=== PATIENT | female | born 1950 | race Caucasian/White ===

== ENCOUNTER 2023-11-01 08:14 | Day surgery (SDC) | payer MEDICARE, SELFPAY ==
[2023-10-05 10:12] VITALS: BMI 34.8
[2023-10-21 11:49] VITALS: BMI 34.4
--- NOTE | 2023-10-25 10:58 | PM.HPGS ---
History of Present Illness History of Present Illness Consent: Risks, benefits, and alternatives have been discussed and questions answered. Patient agrees to proceed with procedure. Chief complaint: Dysphagia, Diaphragmatic Hernia wo Obstruction or Narrative: Hayde Greer is a 72 year old female who has been experiencing similar symptoms that she had prior to her last EGD with dilation in 2019. She admits to epigastric discomfort and dysphagia with solid foods but denies any difficulty swallowing pills or liquids. her symptoms have been occurring intermittently over the past year. her last EGD was 5 years ago. Review of Systems Review of Systems: All systems reviewed & are unremarkable except as noted in HPI and below PMFSH Past Medical History Medical History Anterolisthesis of lumbar spine CVA (cerebral vascular accident) Depression Hypertension Leg pain Malignant neoplasm of endometrium Mixed hyperlipidemia Ocular migraine Osteoarthritis, hip, bilateral Restless leg syndrome Thoracic back pain Type 2 diabetes mellitus Vitamin D deficiency Surgical History Surgical History H/O breast biopsy H/O: hysterectomy Family History Family History Mother Pancreatic cancer Father Hyperlipidemia Sibling Breast cancer Sibling Muscular dystrophy Daughter Thyroid disease Social History Social History Smoking status: Never smoker Alcohol intake: never Substance use: never Substance use type: does not use Living arrangements: with family Spiritual care concerns: No Meds Home Medications and Allergies Home Medications Medication Instructions Recorded Confirmed Type aspirin 325 mg tablet,delayed 325 mg PO DAILY 09/19/23 11/01/23 History release clopidogrel 75 mg tablet 75 mg PO DAILY 09/19/23 11/01/23 History cyanocobalamin (vitamin B-12) 5,000 mcg PO DAILY 09/19/23 11/01/23 History 5,000 mcg capsule losartan 25 mg tablet 25 mg PO DAILY 09/19/23 11/01/23 History metformin 500 mg tablet 500 mg PO QID 09/19/23 11/01/23 History multivitamin 1 tablet PO DAILY 09/19/23 11/01/23 History omega 3-dha 200 mg-epa 300 mg-fish 1 cap PO DAILY 09/19/23 11/01/23 History oil 1,000 mg capsule sertraline 25 mg tablet 25 mg PO DAILY 09/19/23 11/01/23 History simvastatin 40 mg tablet 40 mg PO DAILY 09/19/23 11/01/23 History cholecalciferol (vitamin D3) 250 250 mcg PO DAILY 10/21/23 11/01/23 History mcg (10,000 unit) tablet vitamin B complex 1 cap PO DAILY 10/21/23 11/01/23 History Allergies Allergy/AdvReac Type Severity Reaction Status Date / Time Sulfa (Sulfonamide Allergy Mild Rash Verified 11/01/23 08:38 Antibiotics) Exam Const: General: alert Orientation/consciousness: patient oriented x3 Resp: Auscultation: clear to auscultation bilaterally Cardio: Rhythm: regular rhythm GI: GI Palp: Yes Soft to palpation and No Tenderness to palpation present (GI) Neuro: General: patient oriented x3 Assessment and Plan Assessment and plan (1) Dysphagia: Code(s): R13.10 - Dysphagia, unspecified Status: Acute Assessment and Plan: EGD with possible biopsy or dilatation or cautery.
--- NOTE | 2023-10-26 10:27 | SUR.PREOP ---
Spoke with pt 10/26/23 re clopidogrel clearance. Informed pt received clearance from Dr. Sauer to hold for 4 days prior to procedure, but to continue ASA. Pt verbalized understanding of clodpidogrel last dose of 10/27/23.
[2023-11-01 08:45] VITALS: BP 129/102; PULSE 70; RESP 18; TEMP 36; O2SAT 100; BMI 34.4
--- NOTE | 2023-11-01 09:01 | WPDANESEPPF ---
Anes - Initial Pre Proc Eval Procedure: Operation Date: 11/01/23 09:30 Proposed Procedures p Esophagogastroduodenoscopy - Georges Tomlin MD Date/Time: 11/01/23 09:01 Surgeon: Georges Tomlin MD Pre Op Diagnosis: Dysphagia, Diaphragmatic Hernia wo Obstruction or Patient Data Age: 72 Gender: F Height: 1.63 m Weight: 91.2 kg Last Vital Signs Temp 36.0 C L 11/01/23 08:45 Pulse 70 11/01/23 08:45 Resp 18 11/01/23 08:45 BP 129/102 H 11/01/23 08:45 Pulse Ox 100 11/01/23 08:45 O2 Del Method Room Air 11/01/23 08:45 Allergies Allergy/AdvReac Type Severity Reaction Status Date / Time Sulfa (Sulfonamide Allergy Mild Rash Verified 11/01/23 08:38 Antibiotics) Home Medications Medication Instructions Recorded Confirmed Type aspirin 325 mg tablet,delayed 325 mg PO DAILY 09/19/23 11/01/23 History release clopidogrel 75 mg tablet 75 mg PO DAILY 09/19/23 11/01/23 History cyanocobalamin (vitamin B-12) 5,000 mcg PO DAILY 09/19/23 11/01/23 History 5,000 mcg capsule losartan 25 mg tablet 25 mg PO DAILY 09/19/23 11/01/23 History metformin 500 mg tablet 500 mg PO QID 09/19/23 11/01/23 History multivitamin 1 tablet PO DAILY 09/19/23 11/01/23 History omega 3-dha 200 mg-epa 300 mg-fish 1 cap PO DAILY 09/19/23 11/01/23 History oil 1,000 mg capsule sertraline 25 mg tablet 25 mg PO DAILY 09/19/23 11/01/23 History simvastatin 40 mg tablet 40 mg PO DAILY 09/19/23 11/01/23 History cholecalciferol (vitamin D3) 250 250 mcg PO DAILY 10/21/23 11/01/23 History mcg (10,000 unit) tablet vitamin B complex 1 cap PO DAILY 10/21/23 11/01/23 History Patient hx anesthesia problems: none Family hx anesthesia problems: none Results Review: All pre-operative results and documents have been reviewed as part of the pre-operative evaluation. [facility] Past Medical History Medical History Anterolisthesis of lumbar spine CVA (cerebral vascular accident) Depression Hypertension Leg pain Malignant neoplasm of endometrium Mixed hyperlipidemia Ocular migraine Osteoarthritis, hip, bilateral Restless leg syndrome Thoracic back pain Type 2 diabetes mellitus Vitamin D deficiency Surgical History Surgical History H/O breast biopsy H/O: hysterectomy Family History Family History Mother Pancreatic cancer Father Hyperlipidemia Sibling Breast cancer Sibling Muscular dystrophy Daughter Thyroid disease Social History Social History Smoking status: Never smoker Alcohol intake: never Substance use: never Substance use type: does not use Living arrangements: with family Spiritual care concerns: No Anes - Eval Final PreProcedure Day of Procedure 11/01/23 09:01 Patient weight: obese Heart: regular rate and rhythm Lungs: clear to auscultation Airway: Mallampati scale class II Neurological: alert and oriented Last oral intake: >/= 8 hours ASA classification: III Emergent: no Anesthetic plan: proceed Anesthesia type and monitoring: general GIVS and standard monitoring Results Review: All pre-operative results and documents have been reviewed as part of the pre-operative evaluation. Informed Consent: The patient's anesthetic plan and its attendant risks and benefits were discussed with the patient/family/POA. Questions were solicited and answers provided to the satisfaction of the patient/family/POA.
[2023-11-01] MEDS: LACTATED RINGERS 1,000 ML 150 ML IV CONT (09:04)
[2023-11-01 09:08] LABS: Glucose Point of Care 157 mg/dl (65-105)
[2023-11-01 09:41] VITALS: BP 115/63; PULSE 68; RESP 15; O2SAT 98
[2023-11-01 09:51] VITALS: BP 109/68; PULSE 71; RESP 16; O2SAT 100
[2023-11-01 10:01] VITALS: BP 122/84; PULSE 88; RESP 16; O2SAT 100
--- NOTE | 2023-11-01 10:08 | WPDANESPN ---
Anes - Prog Note Post-Op Date/Time: 11/01/23 10:08 Cardiovascular status: normal Respiratory status: normal Airway patency: baseline Mental status: baseline Post-Op hydration status: normal Vital Signs: Last Vital Signs Temp 36.0 C L 11/01/23 08:45 Pulse 88 11/01/23 10:01 Resp 16 11/01/23 10:01 BP 122/84 11/01/23 10:01 Pulse Ox 100 11/01/23 10:01 O2 Del Method Room Air 11/01/23 10:01 Pain Score (VAS): 0/10 I/O: Intake & Output 10/31/23 11/01/23 11/01/23 23:59 07:59 15:59 Intake Total 200 Balance 200 11/01/23 09:02 POC Capillary Glucose 157 H Patient Feedback: Patient satisfied with anesthetic care.
--- NOTE | 2023-11-01 10:56 | SUR.PHASEII ---
Pt notified at 1010 pt was finished and would be ready to be picked up at 1030. Contacted pt's at 1035 and he stated he was still 25 minutes away.
== END 2023-11-01 10:55 | disposition home or self-care (01) ==
PROVIDERS: PCP Family Medicine; Visit Provider Internal Medicine Gastroenterology
PROC: 0DJ08ZZ Inspection of Upper Intestinal Tract, Via Natural or Artificial Opening Endoscopic (ICD-10-PCS; CPT 43235; principal; 2023-11-01 09:30)
DX: K22.2 Esophageal obstruction (principal); R13.19 Other dysphagia; K31.89 Other diseases of stomach and duodenum; K44.9 Diaphragmatic hernia without obstruction or gangrene
CPT/HCPCS: 43249; 43239

== ENCOUNTER 2023-11-01 11:45 | Outpatient (NON) | payer MEDICARE, SELFPAY | END 2023-11-01 11:46 | disposition home or self-care (01) | LOC: ANHLAB 11-02 11:47 | PROVIDERS: PCP Family Medicine; Visit Provider Internal Medicine Gastroenterology | DX: R10.13 Epigastric pain (principal) | CPT/HCPCS: 88305 ==

== ENCOUNTER 2025-01-16 01:07 | Day surgery (SDC) | payer MEDICARE, SELFPAY ==
[2025-01-02 10:50] VITALS: BMI 36.6
--- NOTE | 2025-01-04 14:27 | PC.NURSE ---
Spoke with patient regarding medication Plavix. Patient verbalizes understanding that the last dose is to be taken on 01/08/25 and the Endoscopist will instruct them when to restart after the procedure.
--- OUTSIDE RECORDS SUMMARY | 2025-01-16 01:10 | XMS_ITS ---
Author Organization [facility] Address [address] [place] [address] Care Team Providers Care Art Education Professor Name Role Phone Nannette Fletcher MD Unavailable [phone] Samantha Dueñas NP Unavailable [phone] Maryjo Mcclelland MD Unavailable [phone] Aman Wolf MD Unavailable [phone] Cody Gao MD Unavailable [phone] Ivan Cho MD Unavailable [phone] Celestina Daly UNEMPLOYMENT INSURANCE HEARING OFFICER Primary Care Provider [phone] Wale Rucker MD Unavailable [phone] Ben Garcia DO Unavailable [phone] Lona Escalera MD Unavailable Active Problems Problem Noted Date Diagnosed Date Severe obesity 12/11/2024 Vision changes 08/27/2024 Class 1 obesity due to exces s calories with serious comorbidity and body mass index (BMI) of 34.0 to 34.9 in adult 08/01/2023 Assessment & Plan (03/26/2024 10:09 AM WOOD PATTERNMAKER): Not at goal No weight loss noted with starting of Trulicity Increase dose to 1.5mg weekly d/t hyperglycemia and may see weight loss as well. Assessment & Plan (02/09/2024 12:05 PM CDT): Not at goal Wt Readings from Last 3 Encounters: 02/09/24 90.5 kg (199 lb 8 oz) 01/12/24 91.3 kg (201 lb 4.8 oz) 01/12/24 91.2 kg (201 lb) Continue working on low carb diet Consider referral to [facility] program Assessment & Plan (10/31/2023 10:48 AM CDT): Pt would benefit from improved diet and exercise habits. Assessment & Plan (08/01/2023 4:05 PM CDT): BMI Follow-up includes: nutrition counseling and exercise counseling. Generalized anxiety disorder 06/07/2023 Chronic low back pain 06/07/2023 Assessment & Plan (08/08/2024 11:46 AM CDT): Chronic pain Experiences chronic pain, currently prescribed gabapentin. Prefers a lower dose to remain alert. Concerns about side effects and communication with current pain management provider. - Continue current gabapentin regimen as needed. - Consider discussing pain management options with current provider. Diabetic peripheral neuropathy 06/07/2023 Encounter for Medicare annual wellness exam 03/24 Assessment & Plan (08/08/2024 11:46 AM CDT): Discussed with patient current recommendations for annual screening(s) including pap smear every 3 years starting at age 21 until age 65. Patients no longer need paps after age 65. Recommend annual mammograms starting at age 40 to 74yo. Recommend colon cancer screening with colonoscopy or DNA stool testing such as Cologuard starting at age 45. Bone density for postmenopausal status every 2 years. Discussed diet, exercise, and importance of maintaining a healthy weight. For smokers or previous smokers that have quit in the past 15 years, annual lung cancer screening is recommended via a low dose CT scan. This is recommended from 50-80yo. General Health Maintenance Managing multiple chronic conditions. Advised to maintain regular health screenings and lifestyle modifications. - Order A1c and urine sample before next appointment. - Encourage outdoor activities as spring approaches. Assessment & Plan (04/13/2022 5:03 PM WOOD PATTERNMAKER): Chart reviewed Full code status 03/10/2021 Assessment & Plan (03/10/2021 12:17 PM CDT): Discussed with patient approximately 20minutes End of life issues/Advanced Directives/Healthcare Surrogate. Discussed DNR. Encouraged to discuss further with family and consult assistant district attorney or complete [place] approved form, which I would be glad to assist them with completion. All questions answered. polst form filled out and signed Thoracic back pain 12/20/2018 Assessment & Plan (01/17/2019 1:47 PM CDT): Ct chest EKG no acute issues lab Assessment & Plan (12/20/2018 12:36 PM CDT): xr t spine Mixed hyperlipidemia 09/13/2018 Assessment & Plan (10/31/2023 10:44 AM CDT): Controlled Repeat labs due Continue simvastatin 40mg daily, ASA 325mg Assessment & Plan (08/01/2023 3:57 PM CDT): Continue simvastatin at same dosage. Well controlled. Assessment & Plan (02/16/2023 12:33 PM CDT): Patient is well controlled. Continue current treatment. Assessment & Plan (01/11/2022 1:00 PM CDT): Update lipid panel ordered last visit. Continue current medications. Assessment & Plan (07/08/2021 3:16 PM WOOD PATTERNMAKER): Recheck labs in 4-6 months. Continue simvastatin Assessment & Plan (12/20/2018 12:31 PM CDT): Patient is well controlled. Continue current treatment. Hypertension 09/13/2018 Assessment & Plan (06/01/2024 9:53 AM WOOD PATTERNMAKER): At goal BP Readings from Last 1 Encounters: 06/01/24 132/68 BP Goal: <64yo: <130/90, 65>: 140/90 Continue losartan 25mg daily Assessment & Plan (10/31/2023 10:47 AM CDT): Stable BP at goal Continue losartan 25mg Assessment & Plan (08/01/2023 3:58 PM CDT): Continue losartan at same dosage. Well controlled. Assessment & Plan (11/11/2022 12:18 PM CDT): Patient is well controlled. Continue current treatment. Assessment & Plan (01/11/2022 1:00 PM CDT): Well controlled. Continue current regimen. Assessment & Plan (07/08/2021 3:16 PM WOOD PATTERNMAKER): Stable. No changes. Assessment & Plan (11/06/2020 12:12 PM CDT): Patient is well controlled. Continue current treatment. Losartan Assessment & Plan (05/08/2020 1:15 PM WOOD PATTERNMAKER): Patient is well controlled. Continue current treatment. Assessment & Plan (10/31/2019 1:31 PM CDT): Patient is well controlled. Continue current treatment. Assessment & Plan (12/20/2018 12:31 PM CDT): Patient is well controlled. Continue current treatment. Assessment & Plan (09/21/2018 9:23 AM CDT): Patient is well controlled. Continue current treatment. Assessment & Plan (09/13/2018 2:09 PM CDT): Patient is well controlled. Continue current treatment. Depression, major, recurrent 09/13/2018 Assessment & Plan (10/31/2023 10:48 AM CDT): Stable Continue Zoloft 25mg daily Assessment & Plan (08/03/2023 8:26 AM CDT): Could be better. Recommend increase Zoloft to 100 mg. Increase dosage declined Assessment & Plan (02/16/2023 12:34 PM CDT): stable Assessment & Plan (11/11/2022 12:18 PM CDT): Patient is well controlled. Continue current treatment. Assessment & Plan (08/11/2022 2:09 PM CDT): Patient is well controlled. Continue current treatment. Cont sertraline Assessment & Plan (10/31/2019 1:32 PM CDT): Stable on sertraline 25 mg Assessment & Plan (12/20/2018 12:30 PM CDT): Doing much better Patient is well controlled. Continue current treatment. Assessment & Plan (09/13/2018 2:11 PM CDT): Start sertraline 25 mg No plan Restless leg syndrome 07/27/2018 Assessment & Plan (03/26/2024 10:09 AM WOOD PATTERNMAKER): Improved Continue gabapentin 100mg HS Assessment & Plan (02/09/2024 12:06 PM CDT): Not at goal d/t S/e with gabapentin Advise to decrease to 100mg HS and then can stop if desired Assessment & Plan (05/08/2020 1:16 PM WOOD PATTERNMAKER): Stable Not on med Assessment & Plan (10/31/2019 1:32 PM CDT): Patient is well controlled. Continue current treatment. 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 Wolf and I discussed test results with the patient and her . She is encouraged to take the aspirin 325 mg daily for stroke prevention. She is encouraged to follow up with her primary care doctor regarding her diabetic control. She should also follow up on a regular basis for blood pressure and cholesterol checking. If she has any further problems she should contact the office or go to the emergency room for evaluation. Ocular migraine 12/07/2016 Assessment & Plan (12/07/2016 2:23 PM CDT): Headaches are unchanged. Advised to keep a headache diary. Counseled regarding lifestyle modifications. Call if having increased problems or any other changes in neurological status. Cerebrovascular accident (CVA) 10/12/2016 Assessment & Plan (02/16/2023 12:34 PM CDT): Patient is well controlled. Continue current treatment. Assessment & Plan (10/31/2019 1:31 PM CDT): Had a fu with neurology Doing ok Assessment & Plan (12/20/2018 12:31 PM CDT): Overall doing well Assessment & Plan (09/13/2018 2:10 PM CDT): Continues on anticoagulation Type 2 diabetes mellitus wit h hyperglycemia, with long-term current use of insulin 04/13/2016 Assessment & Plan (08/08/2024 11:46 AM CDT): Type 2 diabetes mellitus with hyperglycemia Blood glucose levels fluctuate, mostly in the 100s, occasionally reaching 199. No hypoglycemia reported. Current insulin regimen includes Tresiba at 8 units. She prefers managing higher glucose levels over hypoglycemia risk. - Continue Tresiba at 8 units. - Monitor blood glucose levels, report if levels exceed 200. - Consider adjusting insulin dosage based on glucose readings. - Assist in obtaining medication discounts. Increase Tresiba to 10 units for 3-4 days after steroid injections Foot pain Heel pain likely due to callus formation and shoe pressure. No signs of wounds or diabetic foot complications. - Advise on proper footwear to reduce heel pressure. - Monitor for foot wounds. Assessment & Plan (06/01/2024 9:51 AM WOOD PATTERNMAKER): Not at goal but improving! Lab Results Component Value Date HGBA1C 7.7 06/01/2024 New order for Trulicity to pharmacy. Advised will need PA. Continue Tresiba 6 units HS until resuming Trulicity if able. If able to resume Trulicity, decrease to 4 units for first week then stop Tresiba insulin. Continue daily glucose monitoring No hypo episodes Repeat labs prior to next appt Assessment & Plan (03/26/2024 10:08 AM WOOD PATTERNMAKER): Not at goal Fasting glucose in 150s Lab Results Component Value Date HGBA1C 8.3 (H) 02/08/2024 Increase Trulicity to 1.5mg weekly Side effects with Jardiance and metformin XR 1500mg Continue daily glucose checks Discussed adding metformin for PRN coverage around steroid injections or adding PRN SSI around injections when needed Repeat labs prior to next appt Assessment & Plan (02/09/2024 12:05 PM CDT): Not at goal Lab Results Component Value Date HGBA1C 8.3 (H) 02/08/2024 Stop Jardiance d/t frequent UTI and yeast infections Continue metformin 1500mg daily Add Trulicity 0.75mg weekly. Discussed possible s/e. Continue daily glucose checks Advised if unable to tolerate GLP1 will be looking at insulin injections d/t sulfa allergy as well Assessment & Plan (10/31/2023 10:47 AM CDT): Not controlled A1c 7.4 Due for repeat Continue metformin 500mg BID Checks glucose daily Gets yearly diabetic eye exam, no peripheral neuropathy Assessment & Plan (10/31/2023 10:46 AM CDT): >>ASSESSMENT AND PLAN FOR TYPE 2 DIABETES MELLITUS WITH DIABETIC POLYNEUROPATHY, WITHOUT LONG-TERM CURRENT USE OF INSULIN (CMS/HCC) ([facility]) WRITTEN ON 09/13/2018 2:09 PM BY WALE FAIRCHILD DO Patient is well controlled. Continue current treatment. a1c 6.7 Assessment & Plan (10/31/2023 10:46 AM CDT): >>ASSESSMENT AND PLAN FOR TYPE 2 DIABETES MELLITUS WITH DIABETIC POLYNEUROPATHY, WITHOUT LONG-TERM CURRENT USE OF INSULIN (CMS/HCC) ([facility]) WRITTEN ON 09/21/2018 9:23 AM BY WALE FAIRCHILD DO Patient is well controlled. Continue current treatment. Assessment & Plan (10/31/2023 10:46 AM CDT): >>ASSESSMENT AND PLAN FOR TYPE 2 DIABETES MELLITUS WITH DIABETIC POLYNEUROPATHY, WITHOUT LONG-TERM CURRENT USE OF INSULIN (CMS/HCC) ([facility]) WRITTEN ON 12/20/2018 12:31 PM BY WALE FAIRCHILD DO Patient is well controlled. Continue current treatment. Check a a1c Assessment & Plan (10/31/2023 10:46 AM CDT): >>ASSESSMENT AND PLAN FOR TYPE 2 DIABETES MELLITUS WITH DIABETIC POLYNEUROPATHY, WITHOUT LONG-TERM CURRENT USE OF INSULIN (CMS/HCC) ([facility]) WRITTEN ON 10/31/2019 1:31 PM BY WALE FAIRCHILD DO a1c Assessment & Plan (10/31/2023 10:46 AM CDT): >>ASSESSMENT AND PLAN FOR TYPE 2 DIABETES MELLITUS WITH DIABETIC POLYNEUROPATHY, WITHOUT LONG-TERM CURRENT USE OF INSULIN (CMS/HCC) ([facility]) WRITTEN ON 05/08/2020 1:16 PM BY WALE FAIRCHILD DO Lab in 6 months Assessment & Plan (10/31/2023 10:46 AM CDT): >>ASSESSMENT AND PLAN FOR TYPE 2 DIABETES MELLITUS WITH DIABETIC POLYNEUROPATHY, WITHOUT LONG-TERM CURRENT USE OF INSULIN (CMS/HCC) ([facility]) WRITTEN ON 11/06/2020 12:11 PM BY WALE FAIRCHILD, DO a1c to 7.5 Recheck sma 7 and a1c in 3 months Assessment & Plan (10/31/2023 10:46 AM CDT): >>ASSESSMENT AND PLAN FOR TYPE 2 DIABETES MELLITUS WITH DIABETIC POLYNEUROPATHY, WITHOUT LONG-TERM CURRENT USE OF INSULIN (CMS/HCC) ([facility]) WRITTEN ON 03/10/2021 12:20 PM BY WALE FAIRCHILD, DO Check a z1c sma 7 Hep c screen Assessment & Plan (10/31/2023 10:46 AM CDT): >>ASSESSMENT AND PLAN FOR TYPE 2 DIABETES MELLITUS WITH DIABETIC POLYNEUROPATHY, WITHOUT LONG-TERM CURRENT USE OF INSULIN (CMS/HCC) ([facility]) WRITTEN ON 07/08/2021 3:15 PM BY MOHINDER MCRAE PA Hemoglobin A1C stable at 7.5. Continue metformin and she will try to watch diet more closely. Recheck A1C, CMP, and uACR in 4-6 months. Assessment & Plan (10/31/2023 10:46 AM CDT): >>ASSESSMENT AND PLAN FOR TYPE 2 DIABETES MELLITUS WITH DIABETIC POLYNEUROPATHY, WITHOUT LONG-TERM CURRENT USE OF INSULIN (CMS/HCC) ([facility]) WRITTEN ON 01/11/2022 1:00 PM BY MOHINDER MCRAE PA A1C 7.5 (goal < 7.5). Sugars well controlled at home. Update labs - ordered last visit, she will go today. DM eye exam is current. Assessment & Plan (10/31/2023 10:46 AM CDT): >>ASSESSMENT AND PLAN FOR TYPE 2 DIABETES MELLITUS WITH DIABETIC POLYNEUROPATHY, WITHOUT LONG-TERM CURRENT USE OF INSULIN (CMS/HCC) ([facility]) WRITTEN ON 04/13/2022 5:03 PM BY WALE FAIRCHILD, DO No new orders Assessment & Plan (10/31/2023 10:46 AM CDT): >>ASSESSMENT AND PLAN FOR TYPE 2 DIABETES MELLITUS WITH DIABETIC POLYNEUROPATHY, WITHOUT LONG-TERM CURRENT USE OF INSULIN ([facility]) ([facility]) WRITTEN ON 08/11/2022 2:10 PM BY WALE FAIRCHILD DO Patient is well controlled. Continue current treatment. a1c 7.4 Assessment & Plan (10/31/2023 10:46 AM CDT): >>ASSESSMENT AND PLAN FOR TYPE 2 DIABETES MELLITUS WITH DIABETIC POLYNEUROPATHY, WITHOUT LONG-TERM CURRENT USE OF INSULIN ([facility]) ([facility]) WRITTEN ON 02/16/2023 12:34 PM BY WALE FAIRCHILD DO sc Assessment & Plan (08/01/2023 3:55 PM CDT): Worsening diabetes with higher A1c. Continue metformin 500 mg b.i.d.. Recommend add glipizide 5 mg daily. Additional medicine declined. Current Treatment and Therapy Plans No current plan information found. Past Treatment and Therapy Plans No past plan information found. Lifetime Dose Tracking * Chemical Lifetime Dose Automatic Entry Manual Entr y Fluoro Time 1.1 minutes 1.1 minutes 0 minutes Air kerma at the reference point (Ka,r) 18.33 mGy 1 8.33 mGy 0 mGy Resolved Problems Problem Noted Date Diagnosed Date Resolved Date Moderate recurrent major depression 02/09/2024 12/11/2024 Assessment & Plan (08/08/2024 11:45 AM CDT): Depression Recent mood disturbances related to family stressors. Currently on sertraline 25 mg. Discussed that antidepressants are not addictive but can have withdrawal symptoms if stopped abruptly. Increasing the dose to 50 mg is an option. - Increase sertraline to 50 mg. - Send prescription for increased dose to pharmacy. - Monitor for adverse effects from dosage increase. - Educate on non-addictive nature of antidepressants and potential withdrawal symptoms. Assessment & Plan (02/09/2024 12:06 PM CDT): Stable Continue Zoloft 25mg daily Weight loss 11/11/2022 10/31/2023 Assessment & Plan (11/11/2022 12:19 PM CDT): She is closely watching diet Severe obesity (BMI 35.0-39. 9) with comorbidity 04/13/2022 11/11/2022 Assessment & Plan (08/11/2022 2:08 PM CDT): She is intermittent fasting has lost 10 lb since beginning of June Assessment & Plan (04/13/2022 5:03 PM WOOD PATTERNMAKER): Healthy diet Fall 10/17/2020 10/31/2023 Assessment & Plan (10/17/2020 11:40 AM CDT): X ray chest and ribs Leg pain 10/06/2020 10/31/2023 Assessment & Plan (10/06/2020 2:02 PM CDT): LEFT LOWER LATERAL EXTREMITY. No masses. No erythema. No ecchymosis. No masses palpated. Calf is nontender. I will start with a x-ray of the left tib fib. She may need an MRI we will wait results and go from there Chest pain 01/17/2019 05/08/2020 Assessment & Plan (01/17/2019 1:48 PM CDT): Lab Ct chest ekg no acute issues D dimer UTI (urinary tract infection) 09/21/2018 12/20/2018 Overview (09/21/2018): Add cipro Malignant neoplasm of endometrium 07/19/2017 02/09/2024 Episodic tension-type headac he, not intractable 12/07/2016 05/08/2020 Assessment & Plan (12/07/2016 2:24 PM CDT): Headaches are improving with lifestyle modifications. Advised to keep a headache diary. Counseled regarding lifestyle modifications. Headaches are improving. She should call if needs additional treatment. Peripheral polyneuropathy 11/30/2016 Assessment & Plan (05/08/2020 1:15 PM WOOD PATTERNMAKER): Patient is well controlled. Continue current treatment.
--- OUTSIDE RECORDS SUMMARY | 2025-01-16 01:10 | XMS_ITS | Encounter Summary ---
Author Organization [facility] Address [address] [place] [address] Care Team Providers Care Bilingual Operator Name Role Phone Laura Schaefer MD Unavailable [phone] Chase Rice DO Primary Care Provider + Encounter Details Date Type Department Care Team (Late st Contact Info) Description 03/20/2020 Lab Requisition [facility] Lab [address] [place] [id number] Doug Gao MD [address] [place] [id number] Social History Tobacco Use Types Packs/Day Years Used Date Smoking Tobacco: Never Alcohol Use Standard Drinks/Week Comments Not Asked 0 (1 standard drink = 0.6 oz pur e alcohol) Comments No Sex and Gender Information Value Date Recorded Sex Assigned at Not on file Legal Sex Female 1:54 PM CDT Gender Identity Not on file Sexual Orientation Not on file documented as of this encounter Plan of Treatment Not on file documented as of this encounter Procedures Procedure Name Priority Date/Time Associated Diagnosis Comments DERMATOPATHOLOGY Routine 03/19/2020 12:0 0 AM CDT documented in this encounter Results * DERMATOPATHOLOGY (03/19/2020 12:00 AM CDT) Case Report Dermatopathology Report Case: [id number] Authorizing Provider: Doug Gao MD Collected: 03/19/2020 12:00 AM Ordering Location: [facility] Received: 03/20/2020 06:05 AM Pathologist: Inessa Blake MD Specimen: Skin, left forehead 0 10:01 AM [facility]ERMAT[facility]ATHOLOGY [facility]ORAT[facility] Amended Report Change Pathologic Diagnosis from residual basal cell carcinoma not identified to residual squamous cell carcinoma not identified. Microscopic description changed from no basal cell carcinoma is identified to no squamous cell carcinoma is identified. 0 10:01 AM [facility] DERMATOPATHOLOGY [facility]ORATORY Final Diagnosis Specimen A. SKIN, left forehead: DERMAL SCAR RESIDUAL SQUAMOUS CELL CARCINOMA NOT IDENTIFIED (L90.5) 0 10:01 AM [facility] DERMATOPATHOLOGY LABORATORY Amendment electronically signed by Inessa Blake MD on 04/04/2020 at 1001 PASTRY ASSISTANT at 1415 CDT Clinical History Bx proven SCCA. Path # [id number]. 0 10:01 AM [facility] DERMATOPATHOLOGY LABORATORY Gross Description Specimen A: Received is one formalin filled container labeled with the patient's name and designated left forehead. The specimen consists of a non-oriented ellipse of skin measuring [id number]. The epidermal surface is unremarkable. The margin is inked green. The 12 o'clock and 6 o'clock tips are submitted in cassette 1. The remainder of the ellipse is serially sectioned and submitted in cassette 2. Jar 0. 0 10:01 AM [facility] DERMATOPATHOLOGY [facility]ORATORY Microscopic Description Specimen A. SKIN, left forehead: There are fibroblasts and collagen bundles oriented parallel to the skin surface. There are elongated blood vessels, some of which are oriented perpendicular to the skin surface. No squamous cell carcinoma is identified. 0 10:01 AM [facility] DERMATOPATHOLOGY LABORATORY Disclaimer An external and internal positive and negative controls are appropriate for the histochemical, immunohistochemical and immunofluorescence stain(s) in this case (if any), except where stated explicitly. The performance characteristics of the stain(s) cited in this report were developed and its performance characteristic determined by the Dermatopathology Laboratory at [facility], directed by Dr. Gregory Norwood. These tests need not be, and therefore are not, approved by the [place] Food and Drug Administration. The tests are used for clinical purposes. Billing Codes Specimen Charges Stain Charges 43266 1 0 10:01 AM [facility] DERMATOPATHOLOGY LABORATORY Embedded Images 0 10:01 AM [facility] DERMATOPATHOLOGY LABORATORY Pathology/Cytolog y TISSUE SPECIMEN FROM SKIN / Unknown 03/19/2020 03/20/2020 6:05 AM CDT Doug Gao MD LAB - PATHOLOGY/CYTOLOGY ORDER MAY Edited Result - Final DERMATOPATHOLOGY LABORATORY [facility] - Department of Dermatology [facility] Specialized Medicine [address] [place] [address], [address] [place], [place] [id number] [place] [address] documented in this encounter Visit Diagnoses Not on filedocumented in this encounter Care Teams Bilingual Operator Relationship Specialty Start Date End Date Chase Rice DO [address] [place] [id number] PCP - General Family Medicine 08/21/12 Laura Schaefer MD [address] [place] [address] General Surgery 08/21/12 documented as of this encounter
--- OUTSIDE RECORDS SUMMARY | 2025-01-16 01:10 | XMS_ITS | Clinical Summary ---
Author Organization [facility] Address [address] [place] [address] Care Team Providers Care Department Of Natural Resources Officer Name Role Phone Laura Schaefer MD Unavailable [phone] Chase Rice DO Primary Care Provider + Source Comments [facility],non-owned Affiliates and Associated Physician Practices is amultiple site organization consisting of ambulatory clinics and hospital sitesin [place], [place], [place] and [place]. This disclosure is being madepursuant to the Care Everywhere program and may not contain all information available regarding this patient. Last updated 18.[facility] Allergies Active Allergy Reactions Criticality Noted Date Comments Sulfa Drugs Rash Low 08/21/2012 Medications * Be aware that medications may not be up to date on this document. Alwaysverify current medications with the patient. metFORMIN (GLUCOPHAGE) 500 MG tablet once daily. Active simvastatin (ZOCOR) 20 MG tablet once daily. Active amLODIPine (NORVASC) 5 MG tablet once daily. Active Active Problems Problem Noted Date Diagnosed Date Diabetes mellitus Hypertension High cholesterol Family History Medical History Relation Name Comments Cancer - Breast Other cousin Breast Cancer at or under age 50 Sister Relation Name Status Comments Other cousin Alive Sister Alive Social History Tobacco Use Types Packs/Day Years Used Date Smoking Tobacco: Never Alcohol Use Standard Drinks/Week Comments Not Asked 0 (1 standard drink = 0.6 oz pur e alcohol) Comments No Sex and Gender Information Value Date Recorded Sex Assigned at Not on file Legal Sex Female 1:54 PM CDT Gender Identity Not on file Sexual Orientation Not on file Last Filed Vital Signs Vital Sign Reading Time Taken Comments Blood Pressure 130/76 09/04/2013 3:06 PM CDT Pulse 84 08/24/2012 1:18 PM CDT Temperature 36.8 C (98.3 F) 08/24/2012 1:18 PM CDT Respiratory Rate 18 08/24/2012 1:18 PM CDT Oxygen Saturation 98% 08/24/2012 1:18 PM CDT Inhaled Oxygen Concentration - - Weight 99.3 kg (219 lb) 09/04/2013 3:06 PM CDT Height 165.1 cm (5' 5) 09/04/2013 3:06 PM CDT Body Mass Index 36.44 09/04/2013 3:06 PM CDT Plan of Treatment Health Maintenance Due Date Last Done Comments BONE DENSITY TESTING 1950 COLOGUARD (AGES 45-75) - COL ON CA SCREENING 1950 COLON MONITORING 1950 COLONOSCOPY - COLON CA SCREENING 1952 CT COLONOGRAPHY - COLON CA SCREENING 1950 Colorectal Cancer Screening 1950 FIT - COLON CA SCREENING 1952 FLEX SIG - COLON CA SCREENING 1950 HEPATITIS C SCREENING 12/26/1970 DTAP/TDAP/TD VACCINES (1 - Tdap) 12/31/1971 PNEUMOCOCCAL VACCINE 50+ (1 of 2 - PCV) 12/31/1971 ZOSTER VACCINE (1 of 2) 2002 MAMMOGRAM 09/05/2015 09/04/2013 COVID-19 VACCINE (1 - 2023-2 5 season) 2024 DEPRESSION SCREENING 05/23/2024 MEDICARE AWV CALENDAR YEAR 2024 INFLUENZA VACCINE (#1) 2025 Respiratory Syncytial Virus (RSV) Vaccine Pt: or over 60 yrs (1 - 1-dose 75+ series) 12/31/2027 HEPATITIS B VACCINE Aged Out No longe r eligible based on patient's age to complete this topic HIB VACCINE Aged Out No longer eligi ble based on patient's age to complete this topic HPV VACCINE Aged Out No longer eligi ble based on patient's age to complete this topic MENINGOCOCCAL (Group B) VACC INE SHARED DECISION-MAKING Aged Out No longer eligibl e based on patient's age to complete this topic MENINGOCOCCAL GROUPS A/C/Y/W VACCINE Aged Out No longer eligible b ased on patient's age to complete this topic Procedures Procedure Name Priority Date/Time Associated Diagnosis Comments MAMMO BILAT SCREENING Routine 09/04/2013 2:27 PM CDT Screening mammogram for high-risk patient from Last 3 Months or Most Recently Relevant to Health Maintenance Results * MAMMO SCREENING DIGITAL IMAGE BILAT (09/04/2013 2:27 PM CDT) Anatomical Region Laterality Modality Breast Bilateral Mammography 09/06/2013 10:1 2 AM CDT Narrative 09/06/2013 10:19 AM CDT EXAMINATION: Digital screening mammogram on 09/04/13. PRIOR: 2012 FINDINGS: Computer assisted detection was utilized. There are scattered fibroglandular densities. There is no significant change since the prior mammogram. Asymmetric tissue and calcifications in the right breast are stable. ASSESSMENT: BIRADS Category 2: BENIGN FINDINGS. RECOMMENDATION: Screening mammogram in one year. [facility] utilizes [employer] as a reminder system to notify patients of their next recommended mammogram. Procedure Note Jessica Guerrero MD - 09/06/2013 EXAMINATION: Digital screening mammogram on 09/04/13. PRIOR: 2012 FINDINGS: Computer assisted detection was utilized. There are scattered fibroglandular densities. There is no significant change since the prior mammogram. Asymmetric tissue and calcifications in the right breast are stable. ASSESSMENT: BIRADS Category 2: BENIGN FINDINGS. RECOMMENDATION: Screening mammogram in one year. [facility] utilizes [employer] as a reminder system to notify patients of their next recommended mammogram. Laura Schaefer MD MAMMO ORDERABLES Final Resu lt from Last 3 Months or Most Recently Relevant to Health Maintenance Insurance ANTH [employer] [place] [address] [place] [address] * Guarantor: HAYDE BRASHER Account Type Relation to Patient Date of Phone Billing Address Personal/Family [address] [place] [address] [employer] MEDICARE ADV SELF PAY NO INSURANCE Member Subscriber Plan / Payer (Ef fective for All Dates) Name:Hayde Brasher Member ID:Not on file Relation to Subscriber:Not on file Name:HAYDE BRASHER Subscriber ID:Not on file Address: [address] [place] [id number] Payer ID:Not on file Group ID:Not on file Type:Self Pay Address: [place], [place] * Guarantor: MILLITAYLORCHARANJITAZALIACAROLJeff Account Type Relation to Patient Date of Phone Billing Address Personal/Family [address] [place] [address] [employer] MEDICARE ADV SELF PAY NO INSURANCE Member Subscriber Plan / Payer (Ef fective for All Dates) Name:Hayde Brasher Member ID:Not on file Relation to Subscriber:Not on file Name:HAYDE BRASHER Subscriber ID:Not on file Address: [address] [place] [address] Payer ID:Not on file Group ID:Not on file Type:Self Pay Address: [place], [place] * Guarantor: MILLITAYLORCHARANJITAZALIACAROLJeff Account Type Relation to Patient Date of Phone Billing Address Personal/Family [address] [place] [address] [employer] MEDICARE ADV SELF PAY NO INSURANCE Member Subscriber Plan / Payer (Ef fective for All Dates) Name:Hayde Brasher Member ID:Not on file Relation to Subscriber:Not on file Name:HAYDE BRASHER Subscriber ID:Not on file Address: [address] [place] [id number] Payer ID:Not on file Group ID:Not on file Type:Self Pay Address: [place], [place] Care Teams Department Of Natural Resources Officer Relationship Specialty Start Date End Date Chase Rice DO [address] [place] [phone] PCP - General Family Medicine 08/21/12 Laura Schaefer MD [address] [facility] [address] [place] [address] General Surgery 08/21/12
--- OUTSIDE RECORDS SUMMARY | 2025-01-16 01:10 | XMS_ITS | Encounter Summary ---
Author Organization [facility] Address [address] [place] [address] Care Team Providers Care Carton Maker Name Role Phone Laura Schaefer MD Unavailable [phone] Chase Rice DO Primary Care Provider + Encounter Details Date Type Department Care Team (Late st Contact Info) Description 09/23/2022 Lab Requisition [facility] Care DermPath Lab [address] [facility] [place] [phone] Doug Gao MD [address] [facility] [address] Social History Tobacco Use Types Packs/Day Years [...] Priority Date/Time Associated Diagnosis Comments DERMATOPATHOLOGY Routine 09/22/2022 12:0 0 AM CDT documented in this encounter Results * DERMATOPATHOLOGY (09/22/2022 12:00 AM CDT) Case Report Dermatopathology Report Case: [id number] Authorizing Provider: Doug Gao MD Collected: 09/22/2022 12:00 AM Ordering Location: [facility] DermPath Lab Received: 09/23/2022 04:30 PM Pathologist: Annemarie Delvalle MD Specimen: Skin, right jaw 1:49 PM CDT DERMATOPATHOLOGY LABORATORY Final Diagnosis Specimen A. 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 The specimen consists of a non-oriented ellipse of skin measuring [id number] mm. The epidermal surface is unremarkable. The margin is inked green. The 12 o'clock and 6 o'clock tips are submitted in cassette 1. The remainder of the ellipse is serially sectioned and submitted in cassette 2-3. Jar 0+. 1:49 PM CDT DERMATOPATHOLOGY LABORATORY Microscopic Description Specimen A. SKIN, right jaw: The epidermis shows parakeratosis, full thickness disorderly maturation of keratinocytes, mitoses at different levels, and dyskeratotic cells. This lesion is not present at the margin of the specimen. There are fibroblasts and collagen bundles oriented parallel to the skin surface with elongated blood vessels, some of which are oriented perpendicular to the skin surface. 1:49 PM CDT DERMATOPATHOLOGY LABORATORY Disclaimer An external and internal positive and negative controls are appropriate for the histochemical, immunohistochemical and immunofluorescence stain(s) in this case (if any), except where stated explicitly. The performance characteristics of the stain(s) cited in this report were developed and its performance characteristic determined by the Dermatopathology Laboratory at [facility], directed by Dr. Gregory Norwood. These tests need not be, and therefore are not, approved by the [place] Food and Drug Administration. The tests are used for clinical purposes. Billing Codes Specimen Charges Stain Charges 97322 1 05/08/202 3 1:49 PM CDT DERMATOPATHOLOGY LABORATORY Embedded Images 3 1:49 PM CDT DERMATOPATHOLOGY LABORATORY Pathology/Cytolog y TISSUE SPECIMEN FROM SKIN / Unknown 09/22/2022 09/23/2022 4:30 PM CDT us Doug Gao MD LAB - PATHOLOGY/CYTOLOGY ORDER MAY Final Result DERMATOPATHOLOGY LABORATORY [facility] - Department of Dermatology [facility] Specialized Medicine [address] [place] [address], [address] [phone] documented in this encounter Visit Diagnoses Not on filedocumented in this encounter Care Teams Carton Maker Relationship Specialty Start Date End Date Chase Rice DO [address] [place] [address] PCP - General Family Medicine 08/21/12 Laura Schaefer MD [address] [facility] [address] [place] [address] General Surgery 08/21/12 documented as of this encounter
--- OUTSIDE RECORDS SUMMARY | 2025-01-16 01:10 | XMS_ITS | Encounter Summary ---
Author Organization [facility] Address [address] [place] [address] Care Team Providers Care Internal Audit Senior Manager Name Role Phone Laura Schaefer MD Unavailable [phone] Chase Rice DO Primary Care Provider + Encounter Details Date Type Department Care Team (Late st Contact Info) Description 11/05/2019 Lab Requisition [facility] DermPath Lab [address] [facility] [place] [phone] Doug Gao MD [address] [facility] [place] [id number] Social History Tobacco Use Types Packs/Day Years [...] Priority Date/Time Associated Diagnosis Comments DERMATOPATHOLOGY Routine 11/02/2019 12:0 0 AM CDT documented in this encounter Results * DERMATOPATHOLOGY (11/02/2019 12:00 AM CDT) Case Report Dermatopathology Report Case: [id number] Authorizing Provider: Doug Gao MD Collected: 11/02/2019 12:00 AM Ordering Location: [facility] Received: 11/05/2019 07:14 AM Pathologist: Inessa Blake MD Specimen: Skin, left neck 0 1:45 PM CDT DERMATOPATHOLOGY LABORATORY Final Diagnosis Specimen A. SKIN, left neck: ACTINIC KERATOSIS (L57.0) (see microscopic description) 0 1:45 PM CDT DERMATOPATHOLOGY LABORATORY at 1345 CDT Clinical History AK vs BCCA vs SCCA. Path # [id number]. 0 1:45 PM CDT DERMATOPATHOLOGY LABORATORY Gross Description Specimen A: Received is one formalin filled container labeled with the patient's name and designated left neck. The specimen consists of a shave biopsy measuring 7b1e6cm. Jar 0. 0 1:45 PM CDT DERMATOPATHOLOGY LABORATORY Microscopic Description Specimen A. SKIN, left neck: There is focal parakeratosis. The lower half of the epidermis shows disorderly maturation of keratinocytes with nuclear pleomorphism. Adnexal extension of the lesion is seen. 0 1:45 PM CDT DERMATOPATHOLOGY LABORATORY Disclaimer An external and internal positive and negative controls are appropriate for the histochemical, immunohistochemical and immunofluorescence stain(s) in this case (if any), except where stated explicitly. The performance characteristics of the stain(s) cited in this report were developed and its performance characteristic determined by the Dermatopathology Laboratory at [facility], directed by Dr. Gregory Norwood. These tests need not be, and therefore are not, approved by the [place] Food and Drug Administration. The tests are used for clinical purposes. Billing Codes Specimen Charges Stain Charges 28389 1 0 1:45 PM CDT DERMATOPATHOLOGY LABORATORY Embedded Images 0 1:45 PM CDT DERMATOPATHOLOGY LABORATORY Pathology/Cytolog y TISSUE SPECIMEN FROM SKIN / Unknown 11/02/2019 11/05/2019 7:14 AM CDT us Doug Gao MD LAB - PATHOLOGY/CYTOLOGY ORDER MAY Final Result DERMATOPATHOLOGY LABORATORY [facility] - Department of Dermatology [facility] [place]/[address] [place] [id number] [phone] documented in this encounter Visit Diagnoses Not on filedocumented in this encounter Care Teams Internal Audit Senior Manager Relationship Specialty Start Date End Date Chase Rice DO [address] [facility] [place] [address] PCP - General Family Medicine 08/21/12 Laura Schaefer MD [address] [facility] [address] [place] [address] General Surgery 08/21/12 documented as of this encounter
--- OUTSIDE RECORDS SUMMARY | 2025-01-16 01:10 | XMS_ITS | Encounter Summary ---
Author Organization [facility] Care Team Providers Care Ply Bander Name Role Phone Barry Benson MD Primary Care Provider + [phone] Chase Rice DO Primary Care Provider [phone] Chase Rice DO Primary Care Provider + Nannette Fletcher MD Unavailable [phone] Samantha Dueñas NP Unavailable [phone] Maryjo Mcclelland MD Unavailable [phone] Aman Wolf MD Unavailable [phone] Cody Gao MD Unavailable [phone] Ivan Cho MD Unavailable [phone] Celestina Daly NP Primary Care Provider + [phone] Chase Rucker MD Unavailable [phone] Ben Garcia DO Unavailable [phone] Lona Escalera MD Unavailable Encounter Details Date Type Department Care Team (Latest Contact Info) Description 03/15/2015 Orders Only [facility] ProviderNaida MD [address] [place] [address] Social History Tobacco Use Types Packs/Day Years Used Date Smoking Tobacco: Never Assessed Comments Unknown Sex and Gender Information Value Date Recorded Sex Assigned at Not on file Legal Sex Female 2:56 AM BEHAVIOR SPECIALIST Gender Identity Female 08/13/2024 7:17 AM CDT Sexual Orientation Straight 08/13/2024 7: 17 AM CDT documented as of this encounter Plan of Treatment Not on file documented as of this encounter Procedures Procedure Name Priority Date/Time Associated Diagnosis Comments SCAN - LABS 03/15/2015 12:00 AM CDT SCAN - LABS 03/15/2015 12:00 AM CDT documented in this encounter Results * SCAN - LABS (03/15/2015 12:00 AM CDT) Narrative 03/15/2015 12:00 AM CDT Ordered by an unspecified provider. Historical Provider Final Res ult * SCAN - LABS (03/15/2015 12:00 AM CDT) Narrative 03/15/2015 12:00 AM CDT Ordered by an unspecified provider. Historical Provider Final Res ult documented in this encounter Visit Diagnoses Not on filedocumented in this encounter Care Teams Ply Bander Relationship Specialty [place] [address] [facility] [address] [email or web address] [address] [place] [address] PCP - General 10/21/16 10/27/16 Chase Rice DO [address] [facility] [address] [place] [address] PCP - General Family Medicine 10/28/16 08/15/17 Chase Rice DO [address] [facility] [address] [place] [address] PCP - General 08/16/17 08/02/23 Celestina Daly NP [address] [facility] [place] [address] PCP - General Family Medicine 10/31/23 Nannette [place] MD [address] [facility] [place] [address] Flight Test Data Acquisition Technician Cardiology 02/01/19 Samantha Dueñas NP [address] [facility] [place] [address] Nurse Practitioner Orthopedic Surgery 08/03/23 Maryjo Mcclelland MD [address] [place] [address] Consulting Physician Obstetrics and Gynecology 08/03/23 Aman Wolf MD [address] [address] Consulting Physician Neurology 08/03/23 Cody Gao MD [address] [facility] [place] [address] Referring Physician Dermatology 08/03/23 Ivan Cho MD [address] [facility] [place] [address] Consulting Physician Gastroenterology 08/03/23 Chase Rucker MD [address] [place] [address] Consulting Physician Family Medicine 11/29/23 Ben Garcia DO [facility] [address] [address] Consulting Physician Orthopedic Surgery 12/07/23 Lona Escalera MD [address] [facility], [address] [address] Consulting Physician Pain Management 01/12/24 documented as of this encounter
--- OUTSIDE RECORDS SUMMARY | 2025-01-16 01:10 | XMS_ITS | Encounter Summary ---
Author Organization [facility] Address [address] [place] [address] Care Team Providers Care Care Management Associate Name Role Phone Laura Schaefer MD Unavailable [phone] Chase Rice DO Primary Care Provider + Encounter Details Date Type Department Care Team (Late st Contact Info) Description 02/13/2020 Lab Requisition [facility] DermPath Lab [address] [facility], [place] [phone] Doug Gao MD [address] [facility] [address] [place], [place] [id number] Social History Tobacco Use Types Packs/Day Years [...] Priority Date/Time Associated Diagnosis Comments DERMATOPATHOLOGY Routine 02/11/2020 12:0 0 AM CDT documented in this encounter Results * DERMATOPATHOLOGY (02/11/2020 12:00 AM CDT) Case Report Dermatopathology Report Case: [id number] Authorizing Provider: Doug Gao MD Collected: 02/11/2020 12:00 AM Ordering Location: [facility] Received: 02/13/2020 06:26 AM Pathologist: Tamir Norwood MD Specimen: Skin, left forehead 0 3:31 PM CDT DERMATOPATHOLOGY LABORATORY Final Diagnosis Specimen A. SKIN, left forehead: SQUAMOUS CELL CARCINOMA, ACANTHOLYTIC TYPE (C44.329) 0 3:31 PM CDT DERMATOPATHOLOGY LABORATORY at 1531 CDT Clinical History BCCA vs SCCA. Path # [id number]. 0 3:31 PM CDT DERMATOPATHOLOGY LABORATORY Gross Description Specimen A: Received is one formalin filled container labeled with the patient's name and designated left forehead. The specimen consists of a shave biopsy measuring 0w7h6cq, bisected. Jar 0. 0 3:31 PM CDT DERMATOPATHOLOGY LABORATORY Microscopic Description Specimen A. SKIN, left forehead: Sections show skin with irregularly shaped nests of keratinocytes with evidence of cornification. In some nests, there is loss of cohesion between the neoplastic cells, as well as individual dyskeratotic cells that lack intercellular bridges. 0 3:31 PM CDT DERMATOPATHOLOGY LABORATORY Disclaimer An external and internal positive and negative controls are appropriate for the histochemical, immunohistochemical and immunofluorescence stain(s) in this case (if any), except where stated explicitly. The performance characteristics of the stain(s) cited in this report were developed and its performance characteristic determined by the Dermatopathology Laboratory at [facility], directed by Dr. Gregory Norwood. These tests need not be, and therefore are not, approved by the [place] Food and Drug Administration. The tests are used for clinical purposes. Billing Codes Specimen Charges Stain Charges 01693 1 0 3:31 PM CDT DERMATOPATHOLOGY LABORATORY Embedded Images 0 3:31 PM CDT DERMATOPATHOLOGY LABORATORY Pathology/Cytolog y TISSUE SPECIMEN FROM SKIN / Unknown 02/11/2020 02/13/2020 6:26 AM CDT us Doug Gao MD LAB - PATHOLOGY/CYTOLOGY ORDER MAY Final Result DERMATOPATHOLOGY LABORATORY [facility] - Department of Dermatology [facility] Specialized Medicine [address] [facility], 3rd Floor [place], [place] [address] [place] [address] documented in this encounter Visit Diagnoses Not on filedocumented in this encounter Care Teams Care Management Associate Relationship Specialty Start Date End Date Chase Rice DO [address] [facility] [place] [phone] PCP - General Family Medicine 08/21/12 Laura Schaefer MD [address] [facility] [address] [place] [address] General Surgery 08/21/12 documented as of this encounter
--- OUTSIDE RECORDS SUMMARY | 2025-01-16 01:10 | XMS_ITS | Encounter Summary ---
Author Organization [facility] Address [address] [place] [address] Care Team Providers Care Automatic Typewriter Inspector Name Role Phone Laura Schaefer MD Unavailable [phone] Chase Rice DO Primary Care Provider + Encounter Details Date Type Department Care Team (Late st Contact Info) Description 07/18/2020 Lab Requisition [facility] Care DermPath Lab [address] [facility] [place] [phone] Doug Gao MD [address] [place] [address] Social History Tobacco Use Types Packs/Day [...] Priority Date/Time Associated Diagnosis Comments DERMATOPATHOLOGY Routine 07/17/2020 3:33 AM PLAN MANAGER documented in this encounter Results * DERMATOPATHOLOGY (07/17/2020 3:33 AM PLAN MANAGER) Case Report Dermatopathology Report Case: [id number] Authorizing Provider: Doug Gao MD Collected: 07/17/2020 03:33 AM Ordering Location: [facility] Received: 07/18/2020 07:53 AM Pathologist: Annemarie Delvalle MD Specimen: Skin, right cheek 5:30 PM [facility] DERMATOPATHOLOGY LABORATORY Final Diagnosis Specimen A. SKIN, right cheek: HYPERPLASTIC (HYPERTROPHIC) ACTINIC KERATOSIS (L57.0) OVERLYING CUTANEOUS HORN (L85.8) 5:30 PM [facility] DERMATOPATHOLOGY LABORATORY at 1730 PLAN MANAGER Clinical History SCCA vs [place]. Path# [id number]. 5:30 PM [facility] DERMATOPATHOLOGY LABORATORY Gross Description Specimen A: Received is one formalin filled container labeled with the patient's name and designated right cheek. The specimen consists of a shave biopsy measuring [id number]. Jar 0. 5:30 PM [facility] DERMATOPATHOLOGY LABORATORY Microscopic Description Specimen A. SKIN, right cheek: There is hyperkeratosis alternating with parakeratosis. There is epidermal hyperplasia with disorderly maturation of keratinocytes with nuclear pleomorphism confined to the lower half of the epidermis. There is a column of marked compact hyperkeratosis. 5:30 PM [facility] DERMATOPATHOLOGY LABORATORY Disclaimer An external and internal positive and negative controls are appropriate for the histochemical, immunohistochemical and immunofluorescence stain(s) in this case (if any), except where stated explicitly. The performance characteristics of the stain(s) cited in this report were developed and its performance characteristic determined by the Dermatopathology Laboratory at [facility], directed by Dr. Gregory Norwood. These tests need not be, and therefore are not, approved by the [place] Food and Drug Administration. The tests are used for clinical purposes. Billing Codes Specimen Charges Stain Charges 42113 1 5:30 PM [facility] DERMATOPATHOLOGY LABORATORY Embedded Images 5:30 PM [facility] DERMATOPATHOLOGY LABORATORY Pathology/Cytolo gy TISSUE SPECIMEN FROM SKIN / Unknown 07/17/2020 3:33 AM PLAN MANAGER 07/18/2020 7:53 AM PLAN MANAGER us Doug Gao MD LAB - PATHOLOGY/CYTOLOGY ORDER MAY Final Result DERMATOPATHOLOGY LABORATORY [facility] - Department of Dermatology [facility] Specialized Medicine [facility] [facility] [phone] documented in this encounter Visit Diagnoses Not on filedocumented in this encounter Care Teams Automatic Typewriter Inspector Relationship Specialty Start Date End Date Chase Rice DO [address] [place] [phone] PCP - General Family Medicine 08/21/12 Laura Schaefer MD [address] [facility] [address] [place] [address] General Surgery 08/21/12 documented as of this encounter
--- OUTSIDE RECORDS SUMMARY | 2025-01-16 01:10 | XMS_ITS | Encounter Summary ---
Author Organization [facility] Address [address] [facility] [place] [address] Care Team Providers Care Swim Coach Name Role Phone Laura Schaefer MD Unavailable [phone] Chase Rice DO Primary Care Provider + Encounter Details Date Type Department Care Team (Late st Contact Info) Description 07/09/2022 Lab Requisition [facility] Care DermPath Lab [address] [facility] [place] [phone] Doug Gao MD [address] [place] [address] Social History Tobacco Use Types Packs/Day [...] Priority Date/Time Associated Diagnosis Comments DERMATOPATHOLOGY Routine 07/08/2022 12:0 0 AM SOFTWARE PACKAGING ENGINEER documented in this encounter Results * DERMATOPATHOLOGY (07/08/2022 12:00 AM SOFTWARE PACKAGING ENGINEER) Case Report Dermatopathology Report Case: [id number] Authorizing Provider: Doug Gao MD Collected: 07/08/2022 12:00 AM Ordering Location: [facility] Received: 07/09/2022 03:38 PM Pathologist: Inessa Blake MD Specimen: Skin, right jaw 11:34 AM [facility] DERMATOPATHOLOGY LABORATORY Final Diagnosis Specimen A. 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 BCCA vs. SCCA. Path# [id number] 11:34 AM [facility] DERMATOPATHOLOGY LABORATORY Gross Description Specimen A: Received is one formalin filled container labeled with the patient's name and designated right jaw. The specimen consists of a shave biopsy measuring [id number]. Jar 0. 11:34 AM [facility] DERMATOPATHOLOGY LABORATORY Microscopic Description Specimen A. SKIN, right jaw: The epidermis shows parakeratosis, full thickness disorderly maturation of keratinocytes, mitoses at different levels, and dyskeratotic cells. The lesion extends to the base of the biopsy. COMMENT: An invasive squamous cell carcinoma cannot be ruled out. 11:34 AM [facility] DERMATOPATHOLOGY LABORATORY Disclaimer An external and internal positive and negative controls are appropriate for the histochemical, immunohistochemical and immunofluorescence stain(s) in this case (if any), except where stated explicitly. The performance characteristics of the stain(s) cited in this report were developed and its performance characteristic determined by the Dermatopathology Laboratory at [facility], directed by Dr. Gregory Norwood. These tests need not be, and therefore are not, approved by the [place] Food and Drug Administration. The tests are used for clinical purposes. Billing Codes Specimen Charges Stain Charges 27023 1 11:34 AM [facility] DERMATOPATHOLOGY LABORATORY Embedded Images 11:34 AM [facility] DERMATOPATHOLOGY LABORATORY Pathology/Cytolog y TISSUE SPECIMEN FROM SKIN / Unknown 07/08/2022 07/09/2022 3:38 PM SOFTWARE PACKAGING ENGINEER us Doug Gao MD LAB - PATHOLOGY/CYTOLOGY ORDER MAY Final Result DERMATOPATHOLOGY LABORATORY [facility] - Department of Dermatology [facility] Medicine [facility] [facility], 3rd [address] [phone] documented in this encounter Visit Diagnoses Not on filedocumented in this encounter Care Teams Swim Coach Relationship Specialty Start Date End Date Chase Rice DO [address] [facility] [address] [address] [place] [address] [place] [phone] PCP - General Family Medicine 08/21/12 Laura Schaefer MD [address] [facility] [address] [place] [address] General Surgery 08/21/12 documented as of this encounter
--- OUTSIDE RECORDS SUMMARY | 2025-01-16 01:10 | XMS_ITS | Clinical Summary ---
Author Organization [facility] Address [address] [place] [address] Care Team Providers Care Recycling Manager Name Role Phone Nannette Fletcher MD Unavailable [phone] Samantha Dueñas NP Unavailable [phone] Maryjo Mcclelland MD Unavailable [phone] Aman Wolf MD Unavailable [phone] Cody Gao MD Unavailable [phone] Ivan Cho MD Unavailable [phone] Celestina Daly QUALITY CONTROL ENGINEERING TECHNICIAN Primary Care Provider [phone] Wale Rucker MD Unavailable [phone] Ben Garcia DO Unavailable [phone] Lona Escalera MD Unavailable Allergies Active Allergy Reactions Criticality Noted Date Comments Nitrofurantoin Rash Medium 07/21/2018 Rash Sulfa (Sulfonamide Antibiotics) Unknown,Rash Medium Medications ONETOProduct Hunt SYSTEM misc DIRECTED ONCE A DAY 0 9 Active multivitamin capsule Take 1 capsule by mouth daily Active cholecalciferol (VITAMIN D-3) 2000 unit capsule 1 capsule (2,000 Units total) Active lancets (BD Ultra Fine Lancets) 33 gauge miscIndications:Ty pe 2 diabetes mellitus with diabetic polyneuropathy, unspecified whether ocean transportation intermediary insulin use (HCC) 1 each by other route daily 100 each 1 4 Active OneTouch Verio test strips stripIndications:T ype 2 diabetes mellitus with diabetic polyneuropathy, unspecified whether ocean transportation intermediary insulin use (HCC) USE 1 EACH BY OTHER ROUTE DAILY 100 strip 11 4 Active clopidogreL (PLAVIX) 75 mg tablet Take 1 tablet (75 mg total) by mouth daily 90 tablet 3 4 Active pen needle, diabetic 31 gauge x 16 needleIndications: Type 2 diabetes mellitus with hyperglycemia, without long-term current use of insulin ([facility]) Use to inject 1-4 times daily as directed. 100 each 1 4 Active ibuprofen (ADVIL,MOTRIN) 800 mg tablet Take 1 tablet (800 mg total) by mouth every 6 (six) hours as needed 5 Active vitamin B complex capsule Take 1 capsule by mouth daily Active sertraline (ZOLOFT) 25 mg tabletIndications: Moderate recurrent major depression (HCC) Take 1 tablet (25 mg total) by mouth daily 90 tablet 3 5 Active gabapentin (NEURONTIN) 100 mg capsule Take 1 capsule (100 mg total) by mouth 3 (three) times a day 270 capsule 5 025 Active insulin degludec (TRESIBA) 100 unit/mL (3 mL) pen for injection Inject 0.08 mL (8 Units total) under the skin daily 9 mL 2 5 Active meloxicam (MOBIC) 15 mg tablet Take 1 tablet (15 mg total) by mouth daily 5 Active semaglutide (OZEMPIC) 0.25 mg or 0.5 mg (2 mg/3 mL) pen injector injectionIndicatio ns:Type 2 diabetes mellitus with hyperglycemia, with long-term current use of insulin (HCC) Inject 0.25 mg under the skin every 7 days 3 mL 1 5 Active losartan (COZAAR) 25 mg tabletIndications: Primary hypertension Take 1 tablet (25 mg total) by mouth daily Please dispense 100 day supply as covered by insurance. 100 tablet 1 5 Active simvastatin (ZOCOR) 40 mg tabletIndications: Mixed hyperlipidemia Take 1 tablet (40 mg total) by mouth daily Please dispense 100 day supply as covered by insurance. 100 tablet 1 5 Active simvastatin (ZOCOR) 40 mg tablet TAKE 1 TABLET BY MOUTH EVERY DAY 90 tablet 3 4 025 Discontin ued(Reord er) losartan (COZAAR) 25 mg tablet Take 1 tablet (25 mg total) by mouth daily 90 tablet 3 4 025 Discontin ued(Reord er) Active Problems Problem Noted Date Diagnosed Date Severe obesity 12/11/2024 Vision changes 08/27/2024 Class 1 obesity due to exces s calories with serious comorbidity and body mass index (BMI) of 34.0 to 34.9 in adult 08/01/2023 Assessment & Plan (03/26/2024 10:09 AM THERMITE WELDER): Not at goal No weight loss noted [...] approaches. Assessment & Plan (04/13/2022 5:03 PM THERMITE WELDER): Chart reviewed Full code status 03/10/2021 Assessment & Plan (03/10/2021 12:17 PM CDT): Discussed with patient approximately 20minutes End of life issues/Advanced Directives/Healthcare Surrogate. Discussed DNR. Encouraged to discuss further with family and consult trial attorney or complete [place] approved form, which [...] medications. Assessment & Plan (07/08/2021 3:16 PM THERMITE WELDER): Recheck labs in 4-6 months. Continue simvastatin Assessment & Plan (12/20/2018 12:31 PM CDT): Patient is well controlled. Continue current treatment. Hypertension 09/13/2018 Assessment & Plan (06/01/2024 9:53 AM THERMITE WELDER): At goal BP Readings from Last 1 [...] regimen. Assessment & Plan (07/08/2021 3:16 PM THERMITE WELDER): Stable. No changes. Assessment & Plan (11/06/2020 12:12 PM CDT): Patient is well controlled. Continue current treatment. Losartan Assessment & Plan (05/08/2020 1:15 PM THERMITE WELDER): Patient is well controlled. Continue current treatment. [...] 07/27/2018 Assessment & Plan (03/26/2024 10:09 AM THERMITE WELDER): Improved Continue gabapentin 100mg HS Assessment & Plan (02/09/2024 12:06 PM CDT): Not at goal d/t S/e with gabapentin Advise to decrease to 100mg HS and then can stop if desired Assessment & Plan (05/08/2020 1:16 PM THERMITE WELDER): Stable Not on med Assessment & Plan [...] wounds. Assessment & Plan (06/01/2024 9:51 AM THERMITE WELDER): Not at goal but improving! Lab Results [...] appt Assessment & Plan (03/26/2024 10:08 AM THERMITE WELDER): Not at goal Fasting glucose in 150s [...] POLYNEUROPATHY, WITHOUT LONG-TERM CURRENT USE OF INSULIN ([facility]) ([facility]) WRITTEN ON 09/13/2018 2:09 PM BY WALE FAIRCHILD, Patient is well controlled. Continue current treatment. a1c 6.7 Assessment & Plan (10/31/2023 10:46 AM CDT): >>ASSESSMENT AND PLAN FOR TYPE 2 DIABETES MELLITUS WITH DIABETIC POLYNEUROPATHY, WITHOUT LONG-TERM CURRENT USE OF INSULIN ([facility]) ([facility]) WRITTEN ON 09/21/2018 9:23 AM BY WALE FAIRCHILD DO Patient is well controlled. Continue current treatment. Assessment & Plan (10/31/2023 10:46 AM CDT): >>ASSESSMENT AND PLAN FOR TYPE 2 DIABETES MELLITUS WITH DIABETIC POLYNEUROPATHY, WITHOUT LONG-TERM CURRENT USE OF INSULIN ([facility]) ([facility]) WRITTEN ON 12/20/2018 12:31 PM BY WALE FAIRCHILD DO Patient is well controlled. Continue current treatment. Check a a1c Assessment & Plan (10/31/2023 10:46 AM CDT): >>ASSESSMENT AND PLAN FOR TYPE 2 DIABETES MELLITUS WITH DIABETIC POLYNEUROPATHY, WITHOUT LONG-TERM CURRENT USE OF INSULIN ([facility]/HCC) ([facility]) WRITTEN ON 10/31/2019 1:31 PM BY WALE FAIRCHILD DO a1c Assessment & Plan (10/31/2023 10:46 AM CDT): >>ASSESSMENT AND PLAN FOR TYPE 2 DIABETES MELLITUS WITH DIABETIC POLYNEUROPATHY, WITHOUT LONG-TERM CURRENT USE OF INSULIN (CMS/HCC) ([facility]) WRITTEN ON 05/08/2020 1:16 PM BY WALE FAIRCHILD DO Lab in 6 months Assessment & Plan (10/31/2023 10:46 AM CDT): >>ASSESSMENT AND PLAN FOR TYPE 2 DIABETES MELLITUS WITH DIABETIC POLYNEUROPATHY, WITHOUT LONG-TERM CURRENT USE OF INSULIN ([facility]) ([facility]) WRITTEN ON 11/06/2020 12:11 PM BY WALE FAIRCHILD DO a1c to 7.5 Recheck sma 7 and a1c in 3 months Assessment & Plan (10/31/2023 10:46 AM CDT): >>ASSESSMENT AND PLAN FOR TYPE 2 DIABETES MELLITUS WITH DIABETIC POLYNEUROPATHY, WITHOUT LONG-TERM CURRENT USE OF INSULIN ([facility]) ([facility]) WRITTEN ON 03/10/2021 12:20 PM BY WALE FAIRCHILD DO Check a z1c sma 7 Hep c screen Assessment & Plan (10/31/2023 10:46 AM CDT): >>ASSESSMENT AND PLAN FOR TYPE 2 DIABETES MELLITUS WITH DIABETIC POLYNEUROPATHY, WITHOUT LONG-TERM CURRENT USE OF INSULIN (CMS/HCC) ([facility]) WRITTEN ON 07/08/2021 3:15 PM BY MOHINDER MCRAE PA Hemoglobin A1C stable at 7.5. Continue metformin and she will try to watch diet more closely. Recheck A1C, CMP, and uACR in 4-6 months. Assessment & Plan (10/31/2023 10:46 AM CDT): >>ASSESSMENT AND PLAN FOR TYPE 2 DIABETES MELLITUS WITH DIABETIC POLYNEUROPATHY, WITHOUT LONG-TERM CURRENT USE OF INSULIN (CMS/HCC) ([facility]) WRITTEN ON 01/11/2022 1:00 PM BY MOHINDER MCRAE PA A1C 7.5 (goal < 7.5). Sugars well controlled at home. Update labs - ordered last visit, she will go today. DM eye exam is current. Assessment & Plan (10/31/2023 10:46 AM CDT): >>ASSESSMENT AND PLAN FOR TYPE 2 DIABETES MELLITUS WITH DIABETIC POLYNEUROPATHY, WITHOUT LONG-TERM CURRENT USE OF INSULIN (CMS/HCC) ([facility]) WRITTEN ON 04/13/2022 5:03 PM BY WALE FAIRCHILD DO No new orders Assessment & Plan (10/31/2023 10:46 AM CDT): >>ASSESSMENT AND PLAN FOR TYPE 2 DIABETES MELLITUS WITH DIABETIC POLYNEUROPATHY, WITHOUT LONG-TERM CURRENT USE OF INSULIN (CMS/HCC) ([facility]) WRITTEN ON 08/11/2022 2:10 PM BY WALE FAIRCHILD DO Patient is well controlled. Continue current treatment. a1c 7.4 Assessment & Plan (10/31/2023 10:46 AM CDT): >>ASSESSMENT AND PLAN FOR TYPE 2 DIABETES MELLITUS WITH DIABETIC POLYNEUROPATHY, WITHOUT LONG-TERM CURRENT USE OF INSULIN (CMS/HCC) ([facility]) WRITTEN ON 02/16/2023 12:34 PM BY WALE FAIRCHILD DO ak Assessment & Plan (08/01/2023 3:55 PM CDT): Worsening diabetes with higher A1c. Continue metformin 500 mg b.i.d.. Recommend add glipizide 5 mg daily. Additional medicine declined. Resolved Problems Problem Noted Date Diagnosed Date [...] June Assessment & Plan (04/13/2022 5:03 PM THERMITE WELDER): Healthy diet Fall 10/17/2020 10/31/2023 Assessment & [...] 11/30/2016 Assessment & Plan (05/08/2020 1:15 PM THERMITE WELDER): Patient is well controlled. Continue current treatment. Encounters Date Type Department Care Team Description 01/11/2025 ACO Clinical Pharmacist [facility] Family Medicine at [address] [place] [address] Analisa Barriga [facility] Primary hypertension (Primary Dx); Mixed hyperlipidemia 01/02/2025 Telephone [facility] Medicine at [address] [place] [address] Celestina Daly NP 12/11/2024 11:15 AM CDT Office Visit [facility] at [address] [place] [address] Lavonne Garcia PA Type 2 diabetes mellitus with hyperglycemia, with long-term current use of insulin (HCC) (Primary Dx); Primary hypertension; Mixed hyperlipidemia; Mild episode of recurrent major depressive disorder; History of stroke; Chronic low back pain, unspecified back pain laterality, unspecified whether sciatica present; Obesity (BMI 30-39.9); Severe obesity (HCC) 11/28/2024 9:00 AM CDT Office Visit [facility] [address] [place] [address] [address] [place] [address] Samantha Dueñas NP Primary osteoarthritis of right knee, moderate medial (Primary Dx); Right knee pain, unspecified chronicity 11/28/2024 8:55 AM CDT - 11/28/2024 11:59 PM CDT Hospital Encounter [facility] Di[facility] Imaging [address] [place] [phone] Right knee pain, unspecified chronicity Discharge Disposition: Discharge to home or self care 11/08/2024 Telephone [facility] Medicine Ophthalmology [facility] [address] [place] [address] Chuy Melgar MD 11/07/2024 Results Follow-Up [facility] Medical [facility] Family Medicine at [address] [place] [phone] Lavonne Garcia PA CBC without differential, Comprehensive metabolic panel, Lipid panel, Additional followed-up results: 2 10/29/2024 Telephone [facility] at [address] [place] [phone] Celestina Daly, LYNN Forms Request 10/22/2024 Telephone [facility] at [address] [place] [phone] Celestina Daly NP [facility] Assistance Program from Last 3 Months Immunizations Immunization Administration Dates Next Due Influenza, Quad, Adjuvantated, Intramuscular Influenza, Quadrivalent, Hig h Dose, Preservative Free, Intrr 04/13/2022,03/10/2020 Influenza, Quadrivalent, Spl it, Preservative Free, Intramuscular 03/10/2021 Influenza, Trivalent, High D ose, Split, Preservative Free, Intramuscular 03/16/2024,05/04/2019 Influenza, Unspecified 04/07/2023 Moderna SARS-CoV-2 Monovalent Vaccination (12+ Y RS) 03/24/2021 Moderna Sars-cov-2 Bivalent Vaccine 50 Mcg/0.5 mL (12+ YRS)-Blue/[place] 05/11/2022 Pneumococcal Conjugate PCV 13 03/10/2021 Pneumococcal Polysaccharide PPV23 05/08/2020 ZOSTER Recombinant 12/17/2021,03/24/2021 Surgical History Surgery Date Site/Laterality Comments MO BIOPSY BREAST OPEN INCISIONAL Incisional Breast Biopsy - (Added by TW Conv) MO UNLISTED PROCEDURE COLON Colon Surgery - (Added by TW Conv) SQUAMOUS CELL CARCINOMA EXCISION 02/21/2020 - 03/22/2020 on face HYSTERECTOMY 05/23/2017 - 05/22/2018 complete BREAST BIOPSY Bilateral IR INJECTION ARTHROGRAM SI JOINT LEFT INCLUDES IMAGING GUIDANCE 06/17/2023 Left OOPHORECTOMY 05/23/2017 - 05/22/2018 Bilateral ESOPHAGEAL DILATION 05/23/2023 - 05/22/2024 MELANOMA RESECTION CATARACT EXTRACTION, BILATERAL Medical History Medical History Date Comments Hypertension Diabetes mellitus (HCC) Hyperlipidemia Personal history of malignan t neoplasm of other parts of uterus History of cancer of uterus - (Added by TW Conv) Personal history of other en docrine, nutritional and metabolic disease History of hyperlipi demia - (Added by TW Conv) Personal history of other di seases of the circulatory system History of hypertension - (A dded by TW Conv) Personal history of other en docrine, nutritional and metabolic disease History of diabetes mellitus - (Added by TW Conv) Personal history of transien t ischemic attack (TIA), and cerebral infarction without residual deficits History of stroke - (Added b y TW Conv) Personal history of other sp ecified conditions History of breast lump - (Ad ded by TW Conv) DDD (degenerative disc disea se), lumbar Osteoarthritis of sacroiliac joint 10/14/2021 Lumbar facet arthropathy Bilateral primary osteoarthr itis of hip Anterolisthesis of lumbar spine 10/14/2021 Grade 1 L4 on L5 Retrolisthesis of lumbar vertebrae-mild L2 on L3 10/14/2021 Stroke (HCC) Blind Squamous cell skin cancer Obesity Depression Primary osteoarthritis of left knee Family History Medical History Relation Name Comments Muscular dystrophy Brother 1 Muscular dystrophy Brother 2 Family hi story of muscular dystrophy - (Added by TW Conv) Stroke Brother 3 Family history of cerebrovascular accident (CVA) - (Added by TW Conv) Breast cancer Cousin Family history of malignant neoplasm of breast - (Added by TW Conv) Allergies Daughter Thyroid disease Daughter Blood Clot Father Family history of blood clots - (Added by TW Conv) Hyperlipidemia Father Pancreatic cancer Mother Breast cancer Sister 1 Breast cancer Sister 2 Family history of malignant neoplasm of breast - (Added by TW Conv) Rheum arthritis Son Ovarian cancer Neg Hx Uterine cancer Neg Hx Relation Name Status Comments Brother 1 Brother 2 Brother 3 Cousin Daughter Alive Father Alive Mother Sister 1 Sister 2 Son Alive Social History Tobacco Use Types Packs/Day Years Used Date Smoking Tobacco: Never Passive Smoke Exposure: Never Smokeless Tobacco: Never Tobacco Cessation:Counseling Given: Not Answered Alcohol Use Standard Drinks/Week Comments Yes 0 (1 standard drink = 0.6 oz pur e alcohol) rarely AUDIT-C Answer Date Recorded Q1: How often do you have a drink containing alcohol? Never 12/11/2024 Q2: How many drinks containi ng alcohol do you have on a typical day when you are drinking? Patient does not drink Q3: How often do you have si x or more drinks on one occasion? Never 12/11/2024 PHQ-2 Answer Date Recorded PHQ-2 Total Score (If total score is 3 or more points, staff should administer the PHQ-9) 3 08/08/2024 PHQ-9 Answer Date Recorded PHQ-9 Total Score 10 08/08/2024 Personal Safety Answer Date Recorded Have you ever been in or are you currently in a harmful physical or emotional relationship or is someone making you feel afraid or unsafe? Denies 12/21/2023 Comments No Sex and Gender Information Value Date Recorded Sex Assigned at Not on file Legal Sex Female 2:56 AM THERMITE WELDER Gender Identity Female 08/13/2024 7:17 AM CDT Sexual Orientation Straight 08/13/2024 7: 17 AM CDT Obstetrics History Para Term AB IAB SAB Ectopic Multiple Livin g Live Births 2 2 2 2 2 Date Outcome GA Total Labor Labor/2nd/3rd Weight Sex Type Anes PTL Lizbeth A1 A5 Name Clin 1971 Term Living 1976 Term Living Comments MENARCHE: 15 AGE AT FIRST DELIVERY: 20 MENOPAUSE: 50-55 Last Filed Vital Signs Vital Sign Reading Time Taken Comments Blood Pressure 140/80 12/11/2024 11:09 AM CDT Pulse 75 12/11/2024 11:09 AM CDT Temperature 36.8 C (98.3 F) 12/11/2024 11:09 AM CDT Respiratory Rate 18 12/11/2024 11:0 9 AM CDT Oxygen Saturation 96% 12/11/2024 11: 09 AM CDT Inhaled Oxygen Concentration - - Weight 102.8 kg (226 lb 9.6 oz) 07/22/2 025 11:09 AM CDT Height 165.1 cm (5' 5) 12/11/2024 11:0 9 AM CDT Body Mass Index 37.71 12/11/2024 11:09 AM CDT Plan of Treatment Health Maintenance Due Date Last Done Comments DTaP/Tdap/Td Vaccine (1 - Tdap) 12/31/1961 Covid-19 Vaccine (5 - 2023-2 5 season) 2024 05/11/2022, 03/24/2021, 08/04/2020, Additional history exists Influenza Vaccine (#1) 2025 , 04/07/2023, 04/07/2023, Additional history exists Breast Cancer Screening-Mammogram 03/08/2025 03/08/2024, 02/09/2023, 02/04/2022, Additional history exists Osteoporosis Screening-Bone Density Scan 04/25/2025 04/25/2023, 02/02/2021, 08/31/2018 Hemoglobin A1C 06/13/2025 12/11/2024, 10/21, 06/01/2024, Additional history exists Depression Screening 08/08/2025 08/08/2024, 08/08/2024, 08/03/2023, Additional history exists Fall Risk Assessment 08/08/2025 08/08/2024, 08/03/2023, 04/13/2022, Additional history exists Foot Exam 08/08/2025 08/08/2024, 10/21, 01/11/2022, Additional history exists Well Visit 65+ 08/08/2025 08/08/2024, 07/21, 03/18/2023, Additional history exists Albumin Creatinine Ratio, Urine 11/06/2025 11/06/2024, 11/07/2023, 08/07/2022, Additional history exists Lipid Panel 11/06/2025 11/06/2024, 10/21, 08/07/2022, Additional history exists eGFR 11/06/2025 11/06/2024, 01/21, 12/21/2023, Additional history exists Dilated Eye Exam 01/09/2026 01/09/2025, , 03/07/2024, Additional history exists Colon Cancer Screening-Colonoscopy 06/22/2032 06/22/2022, 05/23/2012, 05/23/2012 Hepatitis C Screening Completed 03/10/2021 Pneumococcal vaccine 65+ Completed 03/10/2021, 04/22 Zoster Vaccine Completed 12/17/2021, 03/24/2021 Colon Cancer Screening-CT Colonography Discontinued 06/22/2022, 05/23/2012, 05/23/2012 Colon Cancer Screening-DNA Stool Discontinued 06/22/2022, 05/23/2012, 05/23/2012 Colon Cancer Screening-FIT Discontinued 06/22, 05/23/2012, 05/23/2012 Colon Cancer Screening-Sigmoidoscopy Discontinued 06/22/2022, 05/23/2012, 05/23/2012 Hepatitis B Screening Completed 11/07/2023 Procedures Procedure Name Priority Date/Time Associated Diagnosis Comments DIABETIC EYE EXAM Routine 01/09/2025 POCT HEMOGLOBIN A1C Routine 12/11/2024 11:37 AM CDT Type 2 diabetes mellitus with hyperglycemia, with long-term current use of insulin (HCC) MO ARTHROCENTESIS ASPIR&/INJ MAJOR JT/BURSA W/O US Routine 11/28/2024 9:00 AM CDT Primary osteoarthritis of right knee, moderate medial XR KNEE RIGHT 3 VIEWS Schedule Routine, Read Routine (OP Routine) 11/28/2024 8:59 AM CDT Right knee pain, unspecified chronicity ALBUMIN CREATININE RATIO, URINE Routine 11/06/2024 8:12 AM CDT Type 2 diabetes mellitus with hyperglycemia, with long-term current use of insulin (HCC) HEMOGLOBIN A1C Routine 11/06/2024 8:12 AM CDT Type 2 diabetes mellitus with hyperglycemia, with long-term current use of insulin (HCC) LIPID PANEL Routine 11/06/2024 8:12 AM CDT Type 2 diabetes mellitus with hyperglycemia, with long-term current use of insulin (HCC) COMPREHENSIVE METABOLIC PANEL Routine 11/06/2024 8:12 AM CDT Type 2 diabetes mellitus with hyperglycemia, with long-term current use of insulin (HCC) CBC WITHOUT DIFFERENTIAL Routine 11/06/2024 8:12 AM CDT Type 2 diabetes mellitus with hyperglycemia, with long-term current use of insulin (HCC) SCREENING MAMMOGRAM BILATERAL W POLO Schedule Routine, Read Routine (OP Routine) 03/08/2024 10:57 AM CDT Screening mammogram, encounter for DEXA AXIAL SKELETON BONE DENSITY 1 OR MORE SITES Schedule Routine, Read Routine (OP Routine) 04/25/2023 2:05 PM THERMITE WELDER Post-menopausal COLONOSCOPY Routine 06/22/2022 HEPATITIS C ANTIBODY Routine 03/10/2021 1:21 PM CDT Need for hepatitis C screening test from Last 3 Months or Most Recently Relevant to Health Maintenance Results * Diabetic Eye Exam (01/09/2025) Historical Provider MD HEALTH MAINTENANCE Final Result * (ABNORMAL) POCT hemoglobin A1c (12/11/2024 11:37 AM CDT) Hemoglobin A1C, POC 7.5(A) 4.0 - 5.6 % Blood spot 12/11/2024 11:3 7 AM CDT us Lavonne Guardado POINT OF CARE TEST ORDER MAY Final Result * MO ARTHROCENTESIS ASPIR&/INJ MAJOR JT/BURSA W/O US (11/28/2024 9:00 AM CDT) Narrative Samantha Dueñas NP - 11/28/2024 9:00 AM CDT Samantha Dueñas NP 12/03/2024 11:35 AM Large Joint (Hip, Knee, Shoulder) Injection: R knee Performed by: Samantha Dueñas NP Authorized by: Samantha Dueñas NP Large Joint Injection/Aspiration: Consent Given by: Patient Site marked: the procedure site was marked Timeout: prior to procedure the correct patient, procedure, and site was verified Verbal consent obtained: Yes Supporting Documentation: Indications: Pain Procedure Details: Location: Knee Site: R knee Prep: patient was prepped using a clean technique Needle Size: 22 G Approach: Medial Ultrasound guided: No Fluroscopic guidance: No Medications: 40 mg methylPREDNISolone acetate 40 mg/mL; 4 mL lidocaine 10 mg/mL (1 %) Patient tolerance: Patient tolerated the procedure well with no immediate complications us Samantha Dueñas QUALITY CONTROL ENGINEERING TECHNICIAN IN CLINIC/BEDSIDE ORDERABLE S Final Result * XR Knee Right 3 Views (11/28/2024 8:59 AM CDT) Anatomical Region Laterality Modality Lower Extremities, Knee Right Computed Radiography 12/03/2024 9:09 AM CDT Narrative 12/03/2024 9:10 AM CDT EXAM DESCRIPTION: 1. XR KNEE RIGHT 3 VIEWS REASON FOR STUDY: pain Increased general knee pain for 3 months, no injury FINDINGS: Three views submitted without comparison. No acute fracture. Alignment is normal. Moderate medial predominant right knee osteoarthritis. Small knee effusion is present. Severe medial predominant left knee osteoarthritis noted. IMPRESSION: 1. Moderate medial predominant right knee osteoarthritis with a small effusion. THIS IS AN ELECTRONICALLY VERIFIED FINAL REPORT 12/03/2024 9:10 AM - Electronically signed by Madi Dobbs M.D. T: Report ID: [id number] Reading Location: [id number] Procedure Note Madi Dobbs MD - 12/03/2024 EXAM DESCRIPTION: 1. XR KNEE RIGHT 3 VIEWS REASON FOR STUDY: pain Increased general knee pain for 3 months, no injury FINDINGS: Three views submitted without comparison. No acute fracture. Alignment is normal. Moderate medial predominantright knee osteoarthritis. Small knee effusion is present. Severe medial predominant left knee osteoarthritis noted. IMPRESSION: 1. Moderate medial predominant right knee osteoarthritis with a small effusion. THIS IS AN ELECTRONICALLY VERIFIED FINAL REPORT 12/03/2024 9:10 AM - Electronically signed by Madi Dobbs M.D. T: Report ID: [id number] Reading Location: [place] [address] us Samantha Dueñas QUALITY CONTROL ENGINEERING TECHNICIAN IMG XR PROCEDURES Final Res ult * Albumin Creatinine Ratio, Urine (11/06/2024 8:12 AM CDT) Creatinine, ur 99 20 - 275 mg/dL [facility] Microalbumin, ur 0.4 See Note: mg/dL [facility] Comment: Reference Range: Reference Range Not established Microalbumin/creat ratio 4 <30 mg/g creat [facility] Comment: The ADA defines abnormalities in albumin excretion as follows: Albuminuria Category Result (mg/g creatinine) Normal to Mildly increased <30 Moderately increased 30-299 Severely increased > OR = 300 The ADA recommends that at least two of three specimens collected within a 3-6 month period be abnormal before considering a patient to be within a diagnostic category. Urine 11/06/2024 8:12 AM CDT 11/06/2024 8:13 AM CDT Narrative [facility] - 11/07/2024 3:15 AM CDT FASTING:YES FASTING: YES us Celestina Daly QUALITY CONTROL ENGINEERING TECHNICIAN LAB URINE ORDERABLES Final R esult [facility] [address] [place] [address] * (ABNORMAL) CBC without differential (11/06/2024 8:12 AM CDT) WBC 7.9 3.8 - 10.8 Thousand/u L [facility] RBC, POC 4.40 3.80 - 5.10 Million/uL [facility] Hgb 13.0 11.7 - 15.5 g/dL [facility] Hct 41.7 35.0 - 45.0 % [facility] MCV 94.8 80.0 - 100.0 fL [facility] MCH 29.5 27.0 - 33.0 pg [facility] MCHC 31.2(L) 32.0 - 36.0 g/dL [facility] Comment: For adults, a slight decrease in the calculated MCHC value (in the range of 30 to 32 g/dL) is most likely not clinically significant; however, it should be interpreted with caution in correlation with other red cell parameters and the patient's clinical condition. Rdw 13.5 11.0 - 15.0 % [facility] Platelets 325 140 - 400 Thousand/u L [facility] MPV 9.8 7.5 - 12.5 fL [facility] Blood 11/06/2024 8:12 AM CDT 11/06/2024 8:13 AM CDT Narrative [facility] - 11/07/2024 3:15 AM CDT FASTING:YES FASTING: YES Celestina Daly QUALITY CONTROL ENGINEERING TECHNICIAN LAB BLOOD ORDERABLES Final R esult [facility] [address] [place] [address] * (ABNORMAL) Hemoglobin A1c (11/06/2024 8:12 AM CDT) Hgb A1C 8.7(H) <5.7 % of total Hgb [facility] Comment: For someone without known diabetes, a hemoglobin A1c value of 6.5% or greater indicates that they may have diabetes and this should be confirmed with a follow-up test. For someone with known diabetes, a value <7% indicates that their diabetes is well controlled and a value greater than or equal to 7% indicates suboptimal control. A1c targets should be individualized based on duration of diabetes, age, comorbid conditions, and other considerations. Currently, no consensus exists regarding use of hemoglobin A1c for diagnosis of diabetes for children. Blood 11/06/2024 8:12 AM CDT 11/06/2024 8:13 AM CDT Narrative [facility] - 11/07/2024 3:15 AM CDT FASTING:YES FASTING: YES us Celestina Daly QUALITY CONTROL ENGINEERING TECHNICIAN LAB BLOOD ORDERABLES Final R esult [facility] [address] [place] [address] * Lipid panel (11/06/2024 8:12 AM CDT) Cholesterol 156 <200 mg/dL [facility] HDL 70 > OR = 50 mg/dL [facility] Triglycerides 67 <150 mg/dL [facility] LDL 72 mg/dL (calc) [facility] Comment: Reference range: <100 Desirable range <100 mg/dL for primary prevention; <70 mg/dL for patients with CHD or diabetic patients with > or = 2 CHD risk factors. LDL-C is now calculated using the Marcos calculation, which is a validated novel method providing better accuracy than the Friedewald equation in the estimation of LDL-C. Levar SS et al. FATIMAH. 2013;310(19): 3252-7256 (http://education.[employer]/faq/TDG556) Chol/HDL ratio 2.2 <5.0 (calc) [facility] Non-HDL, (LDL+VLDL) 86 <130 mg/dL (calc) [facility] Comment: For patients with diabetes plus 1 major ASCVD risk factor, treating to a non-HDL-C goal of <100 mg/dL (LDL-C of <70 mg/dL) is considered a therapeutic option. Blood 11/06/2024 8:12 AM CDT 11/06/2024 8:13 AM CDT Narrative [facility] - 11/07/2024 3:15 AM CDT FASTING:YES FASTING: YES us Celestina Daly QUALITY CONTROL ENGINEERING TECHNICIAN LAB BLOOD ORDERABLES Final R esult [facility] [address] [address] [place] [address] * (ABNORMAL) Comprehensive metabolic panel (11/06/2024 8:12 AM CDT) Glucose 125(H) 65 - 99 mg/dL [facility] Comment: Fasting reference interval For someone without known diabetes, a glucose value between 100 and 125 mg/dL is consistent with prediabetes and should be confirmed with a follow-up test. BUN 20 7 - 25 mg/dL [facility] Creatinine 0.75 0.60 - 1.00 mg/dL [facility] eGFR 85 > OR = 60 mL/min/1.7 3m2 [facility] BUN/creat ratio SEE NOTE: 6 - 22 (calc) [facility] Comment: Not Reported: BUN and Creatinine are within reference range. Sodium 136 135 - 146 mmol/L [facility] Potassium, pl 4.5 3.5 - 5.3 mmol/L [facility] Chloride 99 98 - 110 mmol/L [facility] CO2 31 20 - 32 mmol/L [facility] Calcium 9.4 8.6 - 10.4 mg/dL [facility] Protein, sr 6.5 6.1 - 8.1 g/dL [facility] Albumin 3.9 3.6 - 5.1 g/dL [facility] GLOBULIN 2.6 1.9 - 3.7 g/dL (calc) [facility] Alb/glob ratio 1.5 1.0 - 2.5 (calc) [facility] Bilirubin, total 0.6 0.2 - 1.2 mg/dL [facility] Alk phos 57 37 - 153 U/L [facility] AST 16 10 - 35 U/L [facility] ALT (SGPT) 17 6 - 29 U/L [facility] Blood 11/06/2024 8:12 AM CDT 11/06/2024 8:13 AM CDT Narrative [facility] - 11/07/2024 3:15 AM CDT FASTING:YES FASTING: YES us Celestina Daly NP LAB BLOOD ORDERABLES Final R esult [facility] [address] [address] * Screening Mammogram Bilateral W Polo (03/08/2024 10:57 AM CDT) Anatomical Region Laterality Modality Breast Bilateral Mammography Impressions 03/08/2024 11:40 AM CDT BI-RADS ATLAS category (overall): 2 - Benign There is no mammographic evidence of malignancy. A 1 year screening mammogram is recommended. The patient has been or will be contacted. We recommend annual screening mammography for women at average risk of breast cancer beginning at age 40, based on guidelines of the [place] [employer] (ACR Practice Parameter for the Performance of Screening and Diagnostic Mammography) and [place] [employer]etric[employer]. For women with and elevated risk of breast cancer, please refer to the ACR Practice Parameter for specific screening recommendations. The patient will be entered into a reminder system with a target due date of 1 year for her next screening exam. Narrative 03/08/2024 11:40 AM CDT Screening Mammogram Bilateral W Polo: 03/08/24 The study was acquired using full field digital technology and interpreted from soft copy. 2D digital mammographic views, as well as 3D digital tomosynthesis were performed in the CC and MLO projections. CLINICAL: Screening mammogram, encounter for. No relevant medical history has been documented for this patient. History of breast cancer in Sister, Sister, Cousin. COMPARISONS: 02/09/2023 Screening Mammogram Bilateral W Polo 02/04/2022 Screening Mammogram Bilateral W Polo 02/04/2022 Breast Imaging Screening Outside Reference 02/04/2022 SCREENING MAMMOGRAM BILATERAL W POLO 05/06/2020 Breast Imaging Screening Outside Reference 05/06/2020 Mammogram Bilateral (Statistical Only) 05/06/2020 SCREENING MAMMOGRAM BILATERAL W POLO 08/31/2018 Breast Imaging Screening Outside Reference 08/31/2018 SCREENING MAMMOGRAM BILATERAL W POLO BREAST TISSUE: There are scattered areas of fibroglandular density. FINDINGS: There are benign calcifications in both breasts.No suspicious masses, suspicious calcifications, or other suspicious findings are seen within either breast. There has been no suspicious change. 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 FINDINGS: AP LUMBAR SPINE L1-L4: Total BMD is 1.267 g/cm2 T-score is 2.0 LEFT HIP: Total BMD is 1.077 g/cm2 T-score is 1.1 Femoral neck BMD is 0.908 g/cm2 T-score is 0.5 FRAX: FRAX not reported due to T-scores of hip, femoral neck and/or spine being at or above -1.0 (Normal). IMPRESSION: Normal bone mass. REFERENCE: Bone mineral density: Normal (T-score above or = -1.0) Low bone mass (T-score between -1.0 and -2.5) replaces the previously used term osteopenia Osteoporosis (T-score = or below -2.5) Medical evaluation for secondary causes of low bone mineral density may be appropriate. FRAX is a World Health Organization validated fracture risk assessment tool that calculates a person's 10 year probability of a major osteoporosis related fracture and hip fracture. According to the National Osteoporosis Foundation guidelines, postmenopausal women and men age 50 or older with low bone mass and a 10 year probability of a major osteoporosis related fracture = or greater than 20% or a 10 year probability of a hip fracture = or greater than 3% should be considered for treatment. For further information, including treatment recommendations, please refer to the 2019 ISCD Official Positions (http://www.iscd.org) and the NOF's Clinician's Guide to Prevention and Treatment of Osteoporosis (http://www.nof.org/professionals/clinical-guidelines) THIS IS AN ELECTRONICALLY VERIFIED FINAL REPORT 04/26/2023 7:05 PM - Electronically signed by Madi Dobbs M.D. 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 FINDINGS: AP LUMBAR SPINE L1-L4: Total BMD is 1.267 g/cm2 T-score is 2.0 LEFT HIP: Total BMD is 1.077 g/cm2 T-score is 1.1 Femoral neck BMD is 0.908 g/cm2 T-score is 0.5 FRAX: FRAX not reported due to T-scores of hip, femoral neck and/or spine beingat or above -1.0 (Normal). IMPRESSION: Normal bone mass. REFERENCE: Bone mineral density: Normal (T-score above or = -1.0) Low bone mass (T-score between -1.0 and -2.5) replaces thepreviously used term osteopenia Osteoporosis (T-score = or below -2.5) Medical evaluation for secondary causes of low bone mineral density may be appropriate. FRAX is a World Health Organization validated fracture risk assessmenttool that calculates a person's 10 year probability of a major osteoporosisrelated fracture and hip fracture. According to the National OsteoporosisFoundation guidelines, postmenopausal women and men age 50 or older with low bonemass and a 10 year probability of a major osteoporosis related fracture = or greater than 20% or a 10 year probability of a hip fracture = or greaterthan 3% should be considered for treatment. For further information, including treatment recommendations, please referto the 2019 ISCD Official Positions (http://www.iscd.org) and the NOF's Clinician's Guide to Prevention and Treatment of Osteoporosis (http://www.nof.org/professionals/clinical-guidelines) THIS IS AN ELECTRONICALLY VERIFIED FINAL REPORT 04/26/2023 7:05 PM - Electronically signed by Madi Dobbs M.D. MF: GREGORY Report ID: [id number] Reading Location: [place] [address] Wale Fairchild DO IMG DXA PROCEDURES Final Result * Colonoscopy (06/22/2022) Anatomical Region Laterality Modality Other Historical Provider MD ENDOSCOPY PROCEDURES Kelsey l Result * Hepatitis C antibody (03/10/2021 1:21 PM CDT) Hep C Ab NON-REACTI VE NON-REACT MEHREEN [facility] SIGNAL TO CUT-OFF 0.01 <1.00 [facility] Comment: HCV antibody was non-reactive. There is no laboratory evidence of HCV infection. In most cases, no further action is required. However, if recent HCV exposure is suspected, a test for HCV RNA (test code 97061) is suggested. For additional information please refer to http://education.[employer]/faq/VYO53l5 (This link is being provided for informational/ educational purposes only.) Blood specimen (specimen) 03/10/2021 1:21 PM CDT 03/10/2021 1:21 PM CDT Wale Fairchild DO LAB MICROBIOLOGY - GENER AL ORDERABLES Final Result [facility] [address] [place] [phone] from Last 3 Months or Most Recently Relevant to Health Maintenance Insurance [address] [place] [id number] [facility] MEDICARE [facility] Advance Directives For more information, please contact: [phone] Documents on File Type Date Recorded Patient Supervisor [employer] Expl anation ADVANCE DIRECTIVE 07/25/2018 12:00 AM POWER OF ENGLISH FACULTY MEMBER FINANCIAL/MEDICAL Care Teams Recycling Manager Relationship Specialty Start Date End Date Celestina Daly NP [address] [facility] [place] [address] PCP - General Family Medicine 10/31/23 Nannette Fletcher MD [address] [place] [address] Ticketing Clerk Cardiology 02/01/19 Samantha Dueñas NP [address] [place] [address] Nurse Practitioner Orthopedic Surgery 08/03/23 Maryjo Mcclelland MD [address] [place] [address] Consulting Physician Obstetrics and Gynecology 08/03/23 Aman Wolf MD [address] [address] Consulting Physician Neurology 08/03/23 Cody Gao MD [address] [facility] [place] [address] Referring Physician Dermatology 08/03/23 Ivan Cho MD [address] [facility] [place] [address] Consulting Physician Gastroenterology 08/03/23 Wale Rucker MD [address] [facility] [place] [address] Consulting Physician Family Medicine 11/29/23 Ben Garcia DO [facility] [address] [address] Consulting Physician Orthopedic Surgery 12/07/23 Lona Escalera MD [facility] [address] Consulting Physician Pain Management 01/12/24
--- OUTSIDE RECORDS SUMMARY | 2025-01-16 01:10 | XMS_ITS | Encounter Summary ---
Author Organization [facility] Facility Care Team Providers Care Pharmacognosy Teacher Name Role Phone Chase Rice DO Primary Care Provider + Nannette Fletcher MD Unavailable [phone] Samantha Dueñas NP Unavailable [phone] Maryjo Mcclelland MD Unavailable [phone] Aman Wolf MD Unavailable [phone] Cody Gao MD Unavailable [phone] Ivan Cho MD Unavailable [phone] Celestina Daly NP Primary Care Provider [phone] Chase Rucker MD Unavailable [phone] Ben Garcia DO Unavailable [phone] Lona Escalera MD Unavailable Encounter Details Date Type Department Care Team (Latest Contact Info) Description 07/21/2018 Orders Only [facility] CLINCONV Provider, MD Naida [facility] [place] [address] Social History Tobacco Use Types Packs/Day Years Used Date Smoking Tobacco: Never Smokeless Tobacco: Never Alcohol Use Standard Drinks/Week Comments Yes 0 (1 standard drink = 0.6 oz pur e alcohol) rarely Comments Unknown Sex and Gender Information Value Date Recorded Sex Assigned at Not on file Legal Sex Female 2:56 AM RECRUIT INSTRUCTOR Gender Identity Female 08/13/2024 7:17 AM CDT Sexual Orientation Straight 08/13/2024 7: 17 AM CDT documented as of this encounter Plan of Treatment Not on file documented as of this encounter Procedures Procedure Name Priority Date/Time Associated Diagnosis Comments SCAN - LABS 07/21/2018 12:00 AM RECRUIT INSTRUCTOR SCAN - LABS 07/21/2018 12:00 AM RECRUIT INSTRUCTOR documented in this encounter Results * SCAN - LABS (07/21/2018 12:00 AM RECRUIT INSTRUCTOR) Narrative 07/21/2018 12:00 AM RECRUIT INSTRUCTOR Ordered by an unspecified provider. Historical Provider Final Res ult * SCAN - LABS (07/21/2018 12:00 AM RECRUIT INSTRUCTOR) Narrative 07/21/2018 12:00 AM RECRUIT INSTRUCTOR Ordered by an unspecified provider. Historical Provider Final Res ult documented in this encounter Visit Diagnoses Not on filedocumented in this encounter Care Teams Pharmacognosy Teacher Relationship Specialty Start Date End Date Chase Rice DO PCP - General 08/16/17 08/02/23 Celestina Daly NP [address] [place] [address] PCP - General Family Medicine 10/31/23 Nannette Fletcher MD [address] [facility] [place] [address] Data Consultant Cardiology 02/01/19 Samantha Dueñas DEBT AND BUDGET COUNSELOR [address] [facility] [address] [address] Nurse Practitioner Orthopedic Surgery 08/03/23 Maryjo Mcclelland MD [address] [place] [address] Consulting Physician Obstetrics and Gynecology 08/03/23 Aman Wolf MD [address] [address] Consulting Physician Neurology 08/03/23 Cody Gao MD [address] [place] [address] Referring Physician Dermatology 08/03/23 Ivan Cho MD [address] [place] [address] Consulting Physician Gastroenterology 08/03/23 Chase Rucker MD [address] [place] [address] Consulting Physician Family Medicine 11/29/23 Ben Garcia DO [address] [place] [address] [address] Consulting Physician Orthopedic Surgery 12/07/23 Lona Escalera MD [facility] [address] Consulting Physician Pain Management 01/12/24 documented as of this encounter
--- OUTSIDE RECORDS SUMMARY | 2025-01-16 01:10 | XMS_ITS | Encounter Summary ---
Author Organization [facility] Facility Care Team Providers Care Wood Model Builder Name Role Phone Barry Benson MD Primary Care Provider + [phone] Chase Rice DO Primary Care Provider [phone] Chase Rice DO Primary Care Provider + Nannette Fletcher MD Unavailable [phone] Samantha Dueñas NP Unavailable [phone] Maryjo Mcclelland MD Unavailable [phone] Aman Wolf MD Unavailable [phone] Cody Gao MD Unavailable [phone] Ivan Cho MD Unavailable [phone] Celestina Daly NP Primary Care Provider + [phone] Chase Rucker MD Unavailable [phone] Ben Garcia DO Unavailable [phone] Lona Escalera MD Unavailable Encounter Details Date Type Department Care Team (Latest Contact Info) Description 10/09/2012 Orders Only [facility] CLINCONV ProviderNaida MD [address] [place] [address] Social History Tobacco Use Types Packs/Day Years Used Date Smoking Tobacco: Never Assessed Comments Unknown Sex and Gender Information Value Date Recorded Sex Assigned at Not on file Legal Sex Female 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 Historical Provider Final Res ult documented in this encounter Visit Diagnoses Not on filedocumented in this encounter Care Teams Wood Model Builder Relationship Specialty [place] [address] [facility] [address] [address] PCP - General 10/21/16 10/27/16 Chase Rice DO [address] [facility] [address] [place] [address] PCP - General Family Medicine 10/28/16 08/15/17 Chase Rice DO [address] [facility] [address] [place] [address] PCP - General 08/16/17 08/02/23 Celestina Daly NP [address] [facility] [place] [address] PCP - General Family Medicine 10/31/23 Nannette Fletcher MD [address] [facility] [address] [address] Project Development Director Cardiology 02/01/19 Samantha Dueñas LOOM REPAIRER [address] [facility] [address] [place] [address] Nurse Practitioner Orthopedic Surgery 08/03/23 Maryjo Mcclelland MD [address] [place] [address] Consulting Physician Obstetrics and Gynecology 08/03/23 Aman Wolf MD [address] [address] Consulting Physician Neurology 08/03/23 Cody Gao MD [address] [facility] [place] [address] Referring Physician Dermatology 08/03/23 Ivan Cho MD [address] [facility] [place] [address] Consulting Physician Gastroenterology 08/03/23 Chase Rucker MD [address] [facility] [place] [address] Consulting Physician Family Medicine 11/29/23 Ben Garcia DO [address] [place] [address] [address] [place] [address] Consulting Physician Orthopedic Surgery 12/07/23 Lona Escalera MD [address] [place] [address] [facility] [address] Consulting Physician Pain Management 01/12/24 documented as of this encounter
[2025-01-16 08:54] VITALS: BP 166/77; PULSE 75; RESP 16; TEMP 36; O2SAT 94; BMI 38.1
[2025-01-16] MEDS: SIMETHICONE ORAL SUSPENSION 20 MG/0.3 ML 30 ML BOTTLE 1.8 ML PO (09:06)
[2025-01-16] MEDS: LACTATED RINGERS 1,000 ML 150 ML IV CONT (09:06)
--- NOTE | 2025-01-16 09:17 | WPDANESEPPF ---
Anes - Initial Pre Proc Eval Procedure: Operation Date: 01/16/25 10:00 Proposed Procedures p Esophagogastroduodenoscopy - Elan Rossi MD Date/Time: 01/16/25 09:17 Surgeon: Elan Rossi MD Pre Op Diagnosis: Dysphagia, unspecified Patient Data Age: 74 Gender: F Height: 1.65 m Weight: 103.9 kg Last Vital Signs Temp 96.8 F L 01/16/25 08:54 Pulse 75 01/16/25 08:54 Resp 16 01/16/25 08:54 BP 166/77 H 01/16/25 08:54 Pulse Ox 94 01/16/25 08:54 O2 Del Method Room Air 01/16/25 08:54 Allergies Allergy/AdvReac Type Severity Reaction Status Date / Time Sulfa (Sulfonamide Allergy Mild Rash Verified 01/16/25 08:53 Antibiotics) Home Medications ?Medication ?Instructions ?Recorded ?Confirmed ?Type aspirin 325 mg tablet,delayed 325 mg PO DAILY 09/19/23 01/16/25 History release clopidogrel 75 mg tablet 75 mg PO DAILY 09/19/23 01/16/25 History cyanocobalamin (vitamin B-12) 5,000 mcg PO DAILY 09/19/23 01/16/25 History 5,000 mcg capsule losartan 25 mg tablet 25 mg PO DAILY 09/19/23 01/16/25 History multivitamin 1 tablet PO DAILY 09/19/23 01/16/25 History omega 3-dha 200 mg-epa 300 mg-fish 1 cap PO DAILY 09/19/23 01/16/25 History oil 1,000 mg capsule sertraline 25 mg tablet 25 mg PO DAILY 09/19/23 01/16/25 History simvastatin 40 mg tablet 40 mg PO DAILY 09/19/23 01/16/25 History cholecalciferol (vitamin D3) 250 250 mcg PO DAILY 10/21/23 01/16/25 History mcg (10,000 unit) tablet vitamin B complex 1 cap PO DAILY 10/21/23 01/16/25 History dulaglutide 0.75 mg/0.5 mL 0.75 mg subcut WEEKLY 11/20/24 01/16/25 History subcutaneous pen injector (Trulicity) gabapentin 100 mg capsule 100 mg PO TID 11/20/24 01/16/25 History insulin degludec 100 unit/mL (3 5 unit subcut DAILY 11/20/24 01/16/25 History mL) subcutaneous pen (Tresiba FlexTouch U-100 insulin) Laboratory Tests 01/16/25 08:59 POC Capillary Glucose 98 mg/dl (65-105) Patient hx anesthesia problems: none Family hx anesthesia problems: none Results Review: All pre-operative results and documents have been reviewed as part of the pre-operative evaluation. [facility] Past Medical History Medical History Osteoarthritis, hip, bilateral Anterolisthesis of lumbar spine Vitamin D deficiency Leg pain Thoracic back pain Depression Malignant neoplasm of endometrium Hypertension Mixed hyperlipidemia Type 2 diabetes mellitus Restless leg syndrome Ocular migraine CVA (cerebral vascular accident) Surgical History Surgical History H/O: hysterectomy H/O breast biopsy Family History Family History Mother Pancreatic cancer Father Hyperlipidemia Sibling Breast cancer Sibling Muscular dystrophy Daughter Thyroid disease Social History Social History Smoking status: Never smoker Alcohol intake: never Substance use: never Substance use type: does not use Living arrangements: with family Spiritual care concerns: No Anes - Eval Final PreProcedure Day of Procedure 01/16/25 09:17 Patient weight: obese Heart: regular rate and rhythm Lungs: clear to auscultation Airway: Mallampati scale class II Neurological: alert and oriented Last oral intake: >/= 8 hours ASA classification: III Emergent: no Anesthetic plan: proceed Anesthesia type and monitoring: general GIVS and standard monitoring Results Review: All pre-operative results and documents have been reviewed as part of the pre-operative evaluation. Informed Consent: The patient's anesthetic plan and its attendant risks and benefits were discussed with the patient/family/POA. Questions were solicited and answers provided to the satisfaction of the patient/family/POA.
--- NOTE | 2025-01-16 09:31 | PM.IMHP ---
H&P: HPI History of Present Illness Date/Time: 01/16/25 09:31 Chief Complaint: Dysphagia Narrative: this patient has a history of intermittent dysphagia, last EGD in 2023 where she was dilated up to 19 mm. She did well but started having some episodes of dysphagia lately exclusively with solid food. She is referred for EGD. Review of Systems Review of Systems: All systems reviewed & are unremarkable except as noted in HPI and below PMFSH Past Medical History Medical History Osteoarthritis, hip, bilateral Anterolisthesis of lumbar spine Vitamin D deficiency Leg pain Thoracic back pain Depression Malignant neoplasm of endometrium Hypertension Mixed hyperlipidemia Type 2 diabetes mellitus Restless leg syndrome Ocular migraine CVA (cerebral vascular accident) Surgical History Surgical History H/O: hysterectomy H/O breast biopsy Family History Family History Mother Pancreatic cancer Father Hyperlipidemia Sibling Breast cancer Sibling Muscular dystrophy Daughter Thyroid disease Social History Social History Smoking status: Never smoker Alcohol intake: never Substance use: never Substance use type: does not use Living arrangements: with family Spiritual care concerns: No Meds Home Medications and Allergies Home Medications ?Medication ?Instructions ?Recorded ?Confirmed ?Type aspirin 325 mg tablet,delayed 325 mg PO DAILY 09/19/23 01/16/25 History release clopidogrel 75 mg tablet 75 mg PO DAILY 09/19/23 01/16/25 History cyanocobalamin (vitamin B-12) 5,000 mcg PO DAILY 09/19/23 01/16/25 History 5,000 mcg capsule losartan 25 mg tablet 25 mg PO DAILY 09/19/23 01/16/25 History multivitamin 1 tablet PO DAILY 09/19/23 01/16/25 History omega 3-dha 200 mg-epa 300 mg-fish 1 cap PO DAILY 09/19/23 01/16/25 History oil 1,000 mg capsule sertraline 25 mg tablet 25 mg PO DAILY 09/19/23 01/16/25 History simvastatin 40 mg tablet 40 mg PO DAILY 09/19/23 01/16/25 History cholecalciferol (vitamin D3) 250 250 mcg PO DAILY 10/21/23 01/16/25 History mcg (10,000 unit) tablet vitamin B complex 1 cap PO DAILY 10/21/23 01/16/25 History dulaglutide 0.75 mg/0.5 mL 0.75 mg subcut WEEKLY 11/20/24 01/16/25 History subcutaneous pen injector (Trulicity) gabapentin 100 mg capsule 100 mg PO TID 11/20/24 01/16/25 History insulin degludec 100 unit/mL (3 5 unit subcut DAILY 11/20/24 01/16/25 History mL) subcutaneous pen (Tresiba FlexTouch U-100 insulin) Allergies Allergy/AdvReac Type Severity Reaction Status Date / Time Sulfa (Sulfonamide Allergy Mild Rash Verified 01/16/25 08:53 Antibiotics) Vital Signs Vital Signs - 24 hr 01/16/25 08:54 Temperature 96.8 F L Pulse Rate 75 Respiratory Rate 16 Blood Pressure 166/77 H Pulse Oximetry 94 Oxygen Delivery Room Air Exam Const: General: cooperative and healthy appearing Resp: Effort & Inspection: normal respiratory effort and able to speak in complete sentences Auscultation: clear to auscultation bilaterally Cardio: Rate: regular rate Rhythm: regular rhythm GI: Inspection: normal to inspection GI Palp: No No hepatosplenomegaly present Auscultation: normal bowel sounds Rectal Exam: deferred Skin: General skin exam: normal color Psych: Appearance: grossly normal Mental Status: mental status grossly normal Assessment and Plan Assessment and plan (1) Dysphagia: Qualifiers: Dysphagia type: esophageal phase Qualified Code(s): R13.19 - Other dysphagia Code(s): R13.10 - Dysphagia, unspecified Status: Acute Assessment and Plan: The patient is deemed a good candidate for the procedure. Consent signed. Will proceed.
--- NOTE | 2025-01-16 09:45 | S_PTH ---
PATIENT: Hayde Greer LOC: [facility] U#:[id number] AGE/SX: 74/F ROOM: RE01/16/[address]: Elan Rossi MD : 1950 BED: DIS: 01/16/2025 SPEC #: [id number] RECD: 01/16/25 10:19 STATUS: LAURA REQ #: [id number] KERRY: 01/16/25 09:[address]: Elan Rossi DEPT: [facility] [place] Surgical RECD BY: Dina Oneil ENTERED: 01/16/25 10:20 SP TYPE: Surgical OTHR DR: Chase RuckerMD Tissues: A - Gastric Biopsy B - Gastric Biopsy Procedures: Hematoxylin and Eosin Stain Gross and Microscopic Level 4
[2025-01-16 09:46] VITALS: BP 80/46; PULSE 63; RESP 16; O2SAT 100
[2025-01-16 09:56] VITALS: BP 96/44; PULSE 63; RESP 20; O2SAT 100
[2025-01-16 10:06] VITALS: BP 114/49; PULSE 71; RESP 21; O2SAT 100
[2025-01-16 10:16] VITALS: BP 130/65
== END 2025-01-16 10:16 | disposition home or self-care (01) ==
PROVIDERS: PCP Family Medicine; Referring Provider Nurse Practitioner Family; Visit Provider Internal Medicine Gastroenterology
PROC: 0DJ08ZZ Inspection of Upper Intestinal Tract, Via Natural or Artificial Opening Endoscopic (ICD-10-PCS; CPT 43239; principal; 2025-01-16 10:00)
DX: K21.00 Gastro-esophageal reflux disease with esophagitis, without bleeding (principal); K29.50 Unspecified chronic gastritis without bleeding; K44.9 Diaphragmatic hernia without obstruction or gangrene; M16.0 Bilateral primary osteoarthritis of hip; I10 Essential (primary) hypertension; E78.2 Mixed hyperlipidemia; E11.9 Type 2 diabetes mellitus without complications; E55.9 Vitamin D deficiency, unspecified; G25.81 Restless legs syndrome; F32.A Depression, unspecified; M43.16 Spondylolisthesis, lumbar region; E66.9 Obesity, unspecified; Z68.38 Body mass index [BMI] 38.0-38.9, adult; Z79.82 Long term (current) use of aspirin; Z79.02 Long term (current) use of antithrombotics/antiplatelets; Z79.85 Long-term (current) use of injectable non-insulin antidiabetic drugs; Z79.4 Long term (current) use of insulin; Z98.890 Other specified postprocedural states; Z86.79 Personal history of other diseases of the circulatory system; Z85.42 Personal history of malignant neoplasm of other parts of uterus; Z80.0 Family history of malignant neoplasm of digestive organs; Z80.3 Family history of malignant neoplasm of breast
CPT/HCPCS: 43239; 82948; 88305; J2003; J2704; J7120